=== PATIENT | female | born 1960 | race African-American/Black ===

== ENCOUNTER 2019-12-09 20:58 | Emergency (ER) | payer MEDICAID ==
[2019-12-09] MEDS ORDERED: LORAZEPAM INJ 2 MG/1 ML VIAL IV ONE (21:18)
[2019-12-09] MEDS ORDERED: NORMAL SALINE 1000 ML 1,000 ML IV ONE (21:30)
[2019-12-09] MEDS ORDERED: LABETALOL HCL INJ 20 MG/4 ML DISP.SYRIN IV ONE (21:30)
--- NOTE | 2019-12-09 21:35 | RADIOLOGY REPORT (SQ) ---
CT of the head: 12/09/2019 8:28 PM CDT HISTORY: 59-year-old patient with altered mental status, trauma. COMPARISON: None available TECHNIQUE: Multiple axial contiguous images were obtained through the head without intravenous contrast administered. This exam was performed according to our departmental dose-optimization program, which includes automated exposure control, adjustment of the mA and/or KV according to the patient's size and/or use of iterative reconstruction technique. FINDINGS: The ventricles and cerebral sulci demonstrate mild prominence, consistent with cerebral atrophy. There are mild periventricular hypodensities, suggestive of periventricular white matter changes. The sifuentes-white matter differentiation is within normal limits. Both orbits appear unremarkable. Bilateral basal ganglia calcifications are seen. The mastoid air cells appear clear. There is mild mucoperiosteal thickening of the ethmoid sinuses. The calvarium is intact. No extra-axial fluid collection is seen. No midline shift or mass effect is apparent. There are no findings to suggest acute intracranial hemorrhage. IMPRESSION: 1. No acute intracranial hemorrhage is seen. 2. Mild cerebral atrophy and periventricular white matter changes are seen.
--- NOTE | 2019-12-09 21:39 | EKG REPORT ---
SEVERITY:- ABNORMAL ECG - SINUS TACHYCARDIA LEFT ATRIAL ABNORMALITY LVH WITH SECONDARY REPOLARIZATION ABNORMALITY : Confirmed by: Suleiman Shankar 09-Dec-2019 21:38:31
[2019-12-09 21:55] LABS: ARTERIAL BLOOD BASE EXCESS -5.1 mmol/L; ARTERIAL BLOOD H2CO3 1.18 mmol/L (1.05-1.35); ARTERIAL BLOOD HCO3 20.3 mmol/L (20-24); ARTERIAL BLOOD O2 SATURATION 95.8 % (94-98); ARTERIAL BLOOD PCO2 39.2 mmHg (35-45); ARTERIAL BLOOD PH 7.33 (7.35-7.45); ARTERIAL BLOOD PO2 84.9 mmHg (80-100); ARTERIAL BLOOD TOTAL CO2 21.5 mmol/L (21-25)
[2019-12-09 21:58] LABS: ABSOLUTE BASOPHILS # (AUTO) 0.1 10^3/uL (0.0-0.2); ABSOLUTE EOSINOPHILS # (AUTO) 0.2 10^3/uL (0.0-0.6); ABSOLUTE LYMPHOCYTES (AUTO) 2.3 10^3/uL (0.5-4.7); ABSOLUTE MONOCYTES (AUTO) 0.6 10^3/uL (0.1-1.4); ABSOLUTE NEUT (AUTO) 1.7 10^3/uL (1.7-8.2); BASOPHILS % (AUTO) 1.4 % (0-2); EOSINOPHILS % (AUTO) 4.3 % (0-6); HEMOGLOBIN 15.3 g/dL (12.0-15.5); LYMPHOCYTES % (AUTO) 47.4 % (13-45); MEAN CORPUSCULAR HGB CONC 33.2 g/dL (32.0-36.0); MEAN CORPUSCULAR VOLUME 99 fl (80-97); MONOCYTES % (AUTO) 11.7 % (3-13); RED BLOOD COUNT 4.63 10^6/uL (3.72-5.28); RED CELL DISTRIBUTION WIDTH 13.6 % (11.5-14.0); SEGMENTED NEUTROPHILS % (AUTO) 35.2 % (42-78); TOTAL CELLS COUNTED % (AUTO) 100 %; WHITE BLOOD COUNT 4.9 10^3/uL (4.0-10.5)
[2019-12-09 21:59] LABS: ARTERIAL BLOOD FIO2 6 L
[2019-12-09 22:05] LABS: APPEARANCE,URINE SLIGHTLY-CLOUDY; BILIRUBIN,URINE NEGATIVE (NEGATIVE); COLOR,URINE YELLOW; GLUCOSE, URINE 50 mg/dL (NEGATIVE); KETONES,URINE NEGATIVE (NEGATIVE); LEUKOCYTE ESTERASE,URINE TRACE (NEGATIVE); NITRITE,URINE NEGATIVE (NEGATIVE); PROTEIN,URINE 30 mg/dL (NEGATIVE); URINE SPECIFIC GRAVITY 1.012
[2019-12-09 22:15] LABS: ALBUMIN 3.9 g/dL (3.5-5.0); ALKALINE PHOSPHATASE 140 U/L (38-126); ANION GAP 6 (5-19); ASPARTATE AMINO TRANSFERASE 304 U/L (14-36); BILIRUBIN,DIRECT 0.4 mg/dL (0.0-0.4); BILIRUBIN,TOTAL 0.9 mg/dL (0.2-1.3); BLOOD UREA NITROGEN 12 mg/dL (7-20); CALCIUM 8.9 mg/dL (8.4-10.2); CARBON DIOXIDE 22 mmol/L (22-30); CHLORIDE 110 mmol/L (98-107); GLUCOSE 184 mg/dL (75-110); POTASSIUM 3.4 mmol/L (3.6-5.0)
[2019-12-09 22:16] LABS: ALCOHOL < 10 mg/dL (NONE DETECTED)
--- NOTE | 2019-12-09 22:17 | ER Document Report ---
Entered by JULIO RAMIREZ SCRIBE 12/09/198 Acting as scribe for:IRMA HOPSON IV, MD ED General - General Chief Complaint: Altered Mental Status Stated Complaint: ALTERED MENTAL STATUS Mode of Arrival: Medic Information source: Emergency Med Personnel Notes: This 59 year old female patient brought in by EMS from home via emergency traffic presents to the ED today with complaints of altered mental status since yesterday. EMS reports that the patient was not following directions and was combative, so they administered 240 mg Ketamine IM to get her in the truck. Patient had O2 sats of 91% on RA and was placed on 3L supplemental O2 which brought the sats to 97%. Patient was also noted to have snoring respirations that were resolved with placement of a NPA in the right nare. EMS reports a history of mental health issues, hepatitis C, and a "liver procedure." They note that she may have a possible head injury; however, the family were poor historians, so HPI/PMH are limited. Patient has some medications at bedside, one of which is for blood pressure that has not been filled in a while. Past Medical History - General Information source: Emergency Med Personnel Cannot obtain history due to: Altered mental status - Social History Smoking Status: Unknown if Ever Smoked Smoking Education Provided: No Family History: Reviewed & Not Pertinent Review of Systems - Review of Systems -: Yes ROS unobtainable due to patient's medical condition Physical Exam - Vital signs Vitals: Temp Pulse Ox 97.5 F 97 12/09/19 20:58 12/09/19 20:58 - General General appearance: Other - Appears confused, not making eye contact. Random movements noted to all of her extremitties - HEENT Head: Normocephalic, Atraumatic Eyes: No: Scleral icterus Pupils: Pinpoint Nasal: Other - NPA right nare - Respiratory Respiratory status: No respiratory distress, Other - Managing secretions Chest status: Nontender Breath sounds: Normal Chest palpation: Normal - Cardiovascular Rhythm: Regular, Tachycardia Heart sounds: Normal auscultation Murmur: No Friction rub: No Gallop: None auscultated - Abdominal Inspection: Normal Distension: No distension Bowel sounds: Normal Tenderness: Nontender - Abdomen soft Organomegaly: No organomegaly - Back Back: Normal, Nontender - Extremities General upper extremity: Normal inspection General lower extremity: Normal inspection - Neurological Neuro grossly intact: Yes Cognition: Confused - Psychological Associated symptoms: Agitated, Restlessness - Difficulty laying still - Skin Skin Temperature: Warm Skin Moisture: Dry Skin Color: Normal Course - Re-evaluation Re-evalutation: 12/09/19 23:11 Patient seems to be more coherent, making better eye contact and speaking in 2 or 3 word sentences at this time. Patient seems to be responding well to reduction in her elevated blood pressure. Her presentation and symptoms are concerning for hypertensive encephalopathy. Plan is to contact consumer experience consultant for admission. 12/10/19 03:58 Patient is now alert and oriented x3. Patient blood pressure is markedly improved. Patient is off Cardene drip. Patient is refusing recommendation for admission. Patient knows who she is, where she has, who the president is, and what year it is. - Vital Signs Vital signs: Temp Pulse Resp BP Pulse Ox 97.5 F 24 H 146/113 H 97 12/09/19 20:58 12/10/19 03:45 12/10/19 03:45 12/10/19 03:45 - Laboratory Result Diagrams: 12/09/19 21:38 12/09/19 21:38 Laboratory results interpreted by me: 12/09/19 12/09/19 12/09/19 21:38 21:38 21:38 MCV 99 H Plt Count 70 L Lymph % (Auto) 47.4 H Seg Neutrophils % 35.2 L ABG pH 7.33 L Potassium Chloride Glucose AST ALT Alkaline Phosphatase Ammonia 38.4 H Total Protein Free T3 pg/mL Urine Protein Urine Glucose (UA) Urine Blood Urine Urobilinogen Ur Leukocyte Esterase 12/09/19 12/09/19 12/09/19 21:38 21:38 21:38 MCV Plt Count Lymph % (Auto) Seg Neutrophils % ABG pH Potassium 3.4 L Chloride 110 H Glucose 184 H AST 304 H ALT 152 H Alkaline Phosphatase 140 H Ammonia Total Protein 9.0 H Free T3 pg/mL 2.58 L Urine Protein 30 H Urine Glucose (UA) 50 H Urine Blood MODERATE H Urine Urobilinogen 2.0 H Ur Leukocyte Esterase TRACE H - Diagnostic Test Radiology reviewed: Reports reviewed - EKG Interpretation by Me Additional EKG results interpreted by me: 12/09/19 23:12 EKG obtained on 12/09/2019 at 2119 hrs. was interpreted by this MD. Findings: Sinus tachycardia, heart rate 145, normal axis, P waves preceding QRS complexes, QRS complexes appear narrow, there are no obvious patterns of ST segment elevation or depression present to suggest acute myocardial ischemia or infarction. Impression: Sinus tachycardia with nonspecific ST segments. - Consults remington burton, consumer experience consultant service Consulted provider: will come to ER Critical Care Note - Critical Care Note Total time excluding time spent on procedures (mins): 120 - hypertensive urgency Discharge - Discharge Clinical Impression: Hypertensive urgency, Noncompliance with medication regimen Condition: Stable Disposition: HOME, SELF-CARE Additional Instructions: Return to the Emergency Department without delay if any worse. HOME CARE INSTRUCTIONS & INFORMATION: Thank you for choosing us for your medical needs. We hope you're satisfied with the care you received. After you leave, you must properly care for your problem and, at the same time, observe its progress. Any condition can change. Some illnesses can change rapidly over hours or days. If your condition worsens, return to the Emergency Department or see your physician promptly. ABOUT YOUR X-RAYS AND EKG'S: If you had an EKG or X-rays taken, they have been read by the Emergency Physician. The X-rays and EKG's will also be read by a Radiologist or [employer] within 24 hours. If discrepancies are noted, you will be notified by telephone. Please be certain the ED has a correct telephone number & address where you can be reached. Also, realize that some fractures or abnormalities do not show up on initial X-rays. If your symptoms continue, see your physician. ABOUT YOUR LABORATORY TEST: If you had laboratory tests, the results have been reviewed by the Emergency Physician. Some test results (for example cultures) may not be available for several days. You will be contacted if any test result shows you need additional treatment. Please be certain the ED has a correct telephone number and address where you can be reached. ABOUT YOUR MEDICATIONS: You will receive instructions on how to take your medicine on the prescription label you receive. Additional information may be provided by the Pharmacy. If you have questions afterwards, call the ED for clarification or further instructions. Some prescribed medications may cause drowsiness. Do not perform tasks such as driving a car or operating machinery without consulting your Pharmacist. If you feel you need a refill of pain medication, your condition will need re-evaluation. Please do not call for a refill of any medication. ABOUT YOUR SIGNATURE: Signature of this document acknowledges to followin. Understanding that you received emergency treatment and that you may be released before al medical problems are known or treated. Please be certain the ED has a correct phone number & address where you can be reached. 2. Acknowledgement that you will arrange for follow-up care as recommended. 3. Authorization for the Emergency Physician to provide information to your follow-up Physician in order to maximize your care. AT ANY TIME, IF YOUR SYMPTOMS CHANGE SIGNIFICANTLY OR WORSEN OR YOU DEVELOP NEW SYMPTOMS, RETURN TO THE EMERGENCY DEPARTMENT IMMEDIATELY FOR RE-EVALUATION. OUR GOAL IS TO PROVIDE EXCELLENT MEDICAL CARE! WE HOPE THAT WE HAVE MET YOUR EXPECTATIONS DURING YOUR EMERGENCY DEPARTMENT VISIT AND THAT YOU FEEL YOU HAVE RECEIVED EXCELLENT CARE! High Blood Pressure When your blood pressure was taken today it was elevated. Today's reading was___245/176 . Pre-hypertension/Hypertension: The patient has been informed that they may have pre-hypertension or Hypertension based on a blood pressure reading in the emergency department. I recommend that the patient call the primary care provider listed on their discharge instructions or a physician of their choice this week to arrange follow up for further evaluation of possible pre- hypertension or Hypertension. Sometimes, stress or illness causes a temporary elevation of your blood pressure. We suggest that you get your blood pressure measured three more times during the next few days to see if this is more than a temporary abnormality. If your blood pressure is greater than 150/90 on each occasion, you must have treatment. Some simple things you can do to help are: If you have blood pressure medicine but aren't using it regularly, start taking it again. Get some aerobic exercise for at least 20 minutes on a daily basis. (See your doctor before begin marlene a new exercise program.) Eat a low-fat diet. Lose excess weight. Avoid salty foods and avoid adding salt to any of the foods you eat. Avoid diet pills, decongestants, "energizing" herbs, and other medicines that elevate blood pressure. If left untreated, hypertension greatly enhances your risk for developing heart disease and strokes. Please don't ignore this problem. Prescriptions: Carvedilol [Coreg 12.5 mg Tablet] 12.5 mg PO Q12 #28 tablet Amlodipine Besylate [Norvasc 10 mg Tablet] 10 mg PO DAILY #14 tablet Lisinopril [Zestril] 2.5 mg PO DAILY #14 tablet Referrals: BRANDI ANNA MD [HONORARY] - Follow up as needed I personally performed the services described in the documentation, reviewed and edited the documentation which was dictated to the scribe in my presence, and it accurately records my words and actions.
[2019-12-09 22:18] LABS: PLATELET COUNT 70 10^3/uL (150-450)
--- NOTE | 2019-12-09 22:20 | RADIOLOGY REPORT (SQ) ---
XR CHEST 1 VIEW CLINICAL STATEMENT: ams COMPARISON: None FINDINGS: Heart is moderately enlarged. There is no focal lung consolidation or pleural effusion. No evidence of pulmonary edema or pneumothorax. Right subclavian vascular stent is noted in place. IMPRESSION: No definite acute cardiopulmonary disease.
[2019-12-09] MEDS ORDERED: NICARDIPINE HCL RTU, ISO-OS 20 MG/200 ML RTUINJ IV PRN (22:21)
[2019-12-09 22:24] LABS: URINE AMPHETAMINES SCREEN NEGATIVE; URINE BARBITURATES SCREEN NEGATIVE; URINE BENZODIAZEPINES SCREEN NEGATIVE; URINE COCAINE SCREEN NEGATIVE; URINE MARIJUANA (THC) SCREEN NEGATIVE; URINE METHADONE SCREEN NEGATIVE; URINE PHENCYCLIDINE SCREEN NEGATIVE
[2019-12-09 23:50] LABS: FREE T3 2.58 pg/mL (2.77-5.27); FREE T4 (FREE THYROXINE) 1.25 ng/dL (0.78-2.19)
[2019-12-10 00:06] LABS: THYROID STIMULATING HORMONE 3.37 uIU/mL (0.47-4.68)
--- NOTE | 2019-12-10 00:54 | RADIOLOGY REPORT (SQ) ---
CT CERVICAL SPINE: 12/09/2019 11:51 PM CDT TECHNIQUE: Axial contiguous images were obtained through the cervical spine without intravenous contrast. Sagittal and coronal reconstructions were also reviewed. This exam was performed according to our departmental dose-optimization program, which includes automated exposure control, adjustment of the mA and/or KV according to the patient's size and/or use of iterative reconstruction technique. COMPARISON: None available INDICATION: 59-year old patient with neck pain, altered mental status, trauma. FINDINGS: The vertebral bodies appear well aligned. There are multilevel anterior osteophytes within the cervical spine. There is a disc osteophyte seen at C5/C6. The vertebral body heights appear well maintained. No significant pre-vertebral soft tissue swelling is noted. No definite fracture or subluxation is noted. Mild to moderate multilevel intervertebral disc space narrowing is seen. The visualized brain parenchyma appears unremarkable. The craniocervical junction is unremarkable. There is increased density at the right apex adjacent to a stent at the right axillary vasculature. This could be due to scarring four prior procedures. The visualized proximal esophagus is patulous. The left carotid bulb demonstrates moderate atherosclerotic calcification. IMPRESSION: There are no findings to suggest an acute fracture or subluxation within the cervical spine. There is increased density at the right apex which could be due to the prior procedures or scarring. Interval follow-up is recommended to exclude a mass.
[2019-12-10 05:27] VITALS: BP 150/116
== END 2019-12-10 05:26 | disposition home or self-care (01) ==
LOC: ER 20:58
DX: I16.0 Hypertensive urgency (principal); I10 Essential (primary) hypertension; G31.9 Degenerative disease of nervous system, unspecified; R41.0 Disorientation, unspecified; R06.83 Snoring; R00.0 Tachycardia, unspecified; R45.1 Restlessness and agitation; Z91.14 Patient's other noncompliance with medication regimen
CPT/HCPCS: 93005; 99291; 99292; 96361; 96375; 96365; 36415; 84439; 80307 ×2; 82140; 82803; 84443; 85025; 80053; 81001; 84481; 71045; 70450; 72125; 93010; J3490 ×2; J2060; J7030

== ENCOUNTER 2020-03-13 15:14 | Inpatient (IN) | payer MEDICAID ==
[2020-03-13] MEDS ORDERED: ACETAMINOPHEN 325 MG TABLET PO ONE (15:28)
[2020-03-13] MEDS ORDERED: CEFEPIME 2 GM/D5W RTU 2 GM/50 ML RTUPB IV ONE (15:30)
[2020-03-13] MEDS ORDERED: VANCOMYCIN HCL INJ 1000 MG VIAL IV ONE (15:30)
[2020-03-13] MEDS ORDERED: NORMAL SALINE 1000 ML 1,000 ML IV ONE ×2 (15:30→19:20)
[2020-03-13] MEDS ORDERED: ACETAMINOPHEN 650 MG SUPP.RECT PR ONE (15:34)
--- NOTE | 2020-03-13 15:46 | ER Document Report ---
ED General - General Chief Complaint: Unresponsive Stated Complaint: UNRESPONSIVE Time Seen by Provider: 03/13/20 15:28 Mode of Arrival: Medic Information source: Emergency Med Personnel - [facility] Notes: Patient brought in by ambulance for altered mental status. History is patient w as found in the bathroom on the floor. Medics state that in transport patient had approximately 15-second tonic-clonic seizure activity. They also state the doctor told him approximately a year ago patient had a similar episode where she was unresponsive for approximate 1 week and then gradually came back to normal. She does have a history of hepatitis C. No known history of trauma. No known history of alcohol or drug use. No known history of vomiting. She was found to have fever in route of 101 by paramedics. Patient is not able to put dissipate in history. Past Medical History - General Information source: Emergency Med Personnel - Social History Smoking Status: Former Smoker Frequency of alcohol use: None known Drug Abuse: None - None known Family History: Reviewed & Not Pertinent Review of Systems - Review of Systems -: Yes ROS unobtainable due to patient's medical condition - Patient cannot do review of symptoms due to altered mental status Physical Exam - Vital signs Vitals: Resp Pulse Ox 22 H 95 03/13/20 15:31 03/13/20 15:31 Interpretation: Hypertensive - General General appearance: Lethargic - HEENT Head: Normocephalic, Other - Some abrasions to the left lateral side of the face Eyes: Scleral icterus - Respiratory Respiratory status: No respiratory distress Chest status: Nontender Breath sounds: Normal Chest palpation: Normal - Cardiovascular Rhythm: Tachycardia - Plan of febrile seizure in route 50 history of liver disease apparently did this a year ago per daughter where she was found unresponsive she was found unresponsive today by daughter in the bathroom paramedics got some abrasions on the side of her head she also has a fever of 101 Heart sounds: Normal auscultation Murmur: No - Abdominal Inspection: Normal Distension: No distension Bowel sounds: Normal Tenderness: Nontender Organomegaly: No organomegaly - Back Back: Normal. No: Scars - Extremities General upper extremity: Normal inspection, Normal color, Normal temperature General lower extremity: Normal inspection, Normal color, Normal temperature - Neurological Neuro grossly intact: No Cognition: Confused - Calluses that they do not want to go back over there after 1 week once all the labs are back and go back over and see if because her up there patient some they would have to and constant Orientation: Disoriented to person, Disoriented to place, Disoriented to time Omar Coma Scale Eye Opening: Spontaneous [place] Coma Scale Verbal: Confused [place] Coma Scale Motor: Localizes to Pain Omar Coma Scale Total: 13 Notes: Neurologically patient has a nonfocal exam. She appears to move all extremities. She does have purposeful movements and that she will move away from painful stimuli or try to grab my hand if I do a sternal rub. She is also pulling off her mask and other items that have been placed on the patient. She will not follow commands at this time however. She does appear confused. - Psychological Associated symptoms: Agitated, Confused - Skin Skin Temperature: Warm Skin Moisture: Dry Skin Color: Normal Course - Re-evaluation Re-evalutation: 03/13/20 15:47 Patient arrives confused and febrile. However she is a GCS of 12-13 at this time. Patient is protecting her airway. She is talking however it is not comprehensible at this time. She does have purposeful movements. She will not follow commands. Patient is febrile as well. Source of the fever is unclear at this time. Patient does have 6 approximately 25 white cells in her urine and no other obvious source of infection. A Covid test is pending. Patient did have a lumbar puncture performed however it does not appear to be consistent with an infectious process in the CSF. The red cells did not clear from 2 1-2 before. I did call and discussed this with the neurologist at [facility] who thought it was most consistent with a traumatic tap and not with an occult subarachnoid. However he recommended that if patient's neurological status does not improve by tomorrow he would recommend a CTA. Currently has approximately 7 PM patient is still confused. She moves all extremities well and will lie with her hand behind her head relaxing and will roll over from one side to the other. However she will not follow any commands. Also she tries to speak but it is un intelligible. She has received 2 doses of labetalol for her uncontrolled hypertension and currently her blood pressures approximately 185 systolic which is significantly down from her initial pressures on no more labetalol as can be given. Pulse has been in the 80s. O2 saturations been 96 to 100% on room air. Patient remains febrile despite Tylenol at this time an NSAID will be tried. Patient has been covered with antibiotics. She has good urine output and is now on her third liter of fluid. She will be admitted to the hospital for further evaluation. 03/13/20 19:21 - Vital Signs Vital signs: Temp Pulse Resp BP Pulse Ox 21 H 179/101 H 95 03/13/20 18:31 03/13/20 18:31 03/13/20 18:31 - Laboratory Result Diagrams: 03/13/20 15:30 03/13/20 15:30 Laboratory results interpreted by me: 03/13/20 03/13/20 03/13/20 15:30 15:30 15:30 Hgb 16.1 H Hct 48.2 H MCV 99 H Plt Count 112 L PT 16.6 H Carbon Dioxide 17 L Anion Gap 23 H Glucose 131 H Lactic Acid Total Bilirubin 1.9 H Direct Bilirubin 1.0 H AST 101 H ALT 61 H Alkaline Phosphatase 151 H Total Protein 9.4 H Urine Protein Urine Ketones Urine Blood Urine Urobilinogen Leukocyte Esterase Rfl CSF WBC CSF RBC CSF Glucose CSF Total Protein 03/13/20 03/13/20 03/13/20 15:30 16:07 16:11 Hgb Hct MCV Plt Count PT Carbon Dioxide Anion Gap Glucose Lactic Acid 9.7 H Total Bilirubin Direct Bilirubin AST ALT Alkaline Phosphatase Total Protein Urine Protein >=500 H Urine Ketones TRACE H Urine Blood SMALL H Urine Urobilinogen 4.0 H Leukocyte Esterase Rfl SMALL H CSF WBC 6 H CSF RBC 4050 H CSF Glucose CSF Total Protein 03/13/20 03/13/20 16:11 16:11 Hgb Hct MCV Plt Count PT Carbon Dioxide Anion Gap Glucose Lactic Acid Total Bilirubin Direct Bilirubin AST ALT Alkaline Phosphatase Total Protein Urine Protein Urine Ketones Urine Blood Urine Urobilinogen Leukocyte Esterase Rfl CSF WBC 11 H CSF RBC 5020 H CSF Glucose 75 H CSF Total Protein 70 H - Diagnostic Test Radiology reviewed: Image reviewed, Reports reviewed - EKG Interpretation by Me EKG shows normal: Sinus rhythm Rate: Tachycardia - 106 Rhythm: NSR [place]/QRS: No: Right axis deviation, Left axis deviation Procedures - Lumbar Puncture Lumbar puncture Time completed: 16:30 Consent obtained: No - obtunded Lumbar puncture pre-procedure: Sterile PPE donned, Betadine prep applied, Sterile drapes applied Patient position: Lying Needle size: 21 Lumbar puncture location: l4-l5 Anesthetic type: 1% Lidocaine w/epi mL's of anesthetic: 6 Amount/type of drainage: clear/pink 5cc's Number of attempts: 1 Complications: Yes - apparent traumatic tap Critical Care Note - Critical Care Note Total time excluding time spent on procedures (mins): 60 Comments: Approximately 60 minutes of critical care time were spent on this patient. This included multiple reassessments. Included reviewing imaging and laboratory values. It included discussion with consultants. It also included discussion with family. Discharge - Discharge Clinical Impression: Fever Qualifiers: Fever type: unspecified Qualified Code(s): R50.9 - Fever, unspecified UTI (urinary tract infection) Qualifiers: Urinary tract infection type: acute cystitis Hematuria presence: without hematuria Qualified Code(s): N30.00 - Acute cystitis without hematuria Altered mental status Qualifiers: Altered mental status type: delirium Qualified Code(s): R41.0 - Disorientation, unspecified Facial contusion Qualifiers: Encounter type: initial encounter Qualified Code(s): S00.83XA - Contusion of other part of head, initial encounter Condition: Critical Disposition: ADMITTED INPATIENT Admitting Provider: Lokesh (Hospitalist) Unit Admitted: [facility]
[2020-03-13 15:51] LABS: ABSOLUTE LYMPHOCYTES (AUTO) 1.2 10^3/uL (0.5-4.7); ABSOLUTE MONOCYTES (AUTO) 0.9 10^3/uL (0.1-1.4); ABSOLUTE NEUT (AUTO) 6.2 10^3/uL (1.7-8.2); BASOPHILS % (AUTO) 0.4 % (0-2); EOSINOPHILS % (AUTO) 0.1 % (0-6); HEMATOCRIT 48.2 % (36.0-47.0); HEMOGLOBIN 16.1 g/dL (12.0-15.5); LYMPHOCYTES % (AUTO) 14.2 % (13-45); MEAN CORPUSCULAR HGB CONC 33.4 g/dL (32.0-36.0); MEAN CORPUSCULAR VOLUME 99 fl (80-97); MONOCYTES % (AUTO) 10.8 % (3-13); PLATELET COUNT 112 10^3/uL (150-450); RED BLOOD COUNT 4.89 10^6/uL (3.72-5.28); RED CELL DISTRIBUTION WIDTH 13.6 % (11.5-14.0); SEGMENTED NEUTROPHILS % (AUTO) 74.5 % (42-78); TOTAL CELLS COUNTED % (AUTO) 100 %; WHITE BLOOD COUNT 8.3 10^3/uL (4.0-10.5)
[2020-03-13] MEDS ORDERED: LABETALOL HCL INJ 20 MG/4 ML DISP.SYRIN IV ONE ×2 (15:51→16:50)
[2020-03-13] MEDS ORDERED: LIDOCAINE 1%/EPINEPHRINE INJ 20 ML VIAL ONE (15:52)
--- NOTE | 2020-03-13 15:54 | RADIOLOGY REPORT (SQ) ---
EXAM DESCRIPTION: CHEST SINGLE VIEW IMAGES COMPLETED DATE/TIME: 03/13/2020 3:47 pm REASON FOR STUDY: ams COMPARISON: 12/09/2019 EXAM PARAMETERS: NUMBER OF VIEWS: One view. TECHNIQUE: Single frontal radiographic view of the chest acquired. RADIATION DOSE: NA LIMITATIONS: None. FINDINGS: LUNGS AND PLEURA: No opacities, masses or pneumothorax. No pleural effusion. MEDIASTINUM AND HILAR STRUCTURES: No masses. Contour normal. HEART AND VASCULAR STRUCTURES: Heart normal in size. Normal vasculature. BONES: No acute findings. HARDWARE: Vascular stent remains in place overlying the right lung apex. OTHER: No other significant finding. IMPRESSION: NO ACUTE RADIOGRAPHIC FINDING IN THE CHEST. TECHNICAL DOCUMENTATION: JOB ID: [id number] 2010 [employer]- All Rights Reserved Reading location - IP/workstation name: [email or web address]
--- NOTE | 2020-03-13 15:57 | RADIOLOGY REPORT (SQ) ---
EXAM DESCRIPTION: CT HEAD WITHOUT IMAGES COMPLETED DATE/TIME: 03/13/2020 3:48 pm REASON FOR STUDY: ams COMPARISON: 12/09/2019 TECHNIQUE: Axial images acquired through the brain without intravenous contrast. Images reviewed wi th bone, brain and subdural windows. Additional sagittal and coronal reconstructions were generated. Images stored on PACS. All CT scanners at this facility use dose modulation, iterative reconstruction, and/or weight based d osing when appropriate to reduce radiation dose to as low as reasonably achievable (ALARA). [facility]: Dose Right [facility]: CareDose [facility]: Dose Right [facility]: Teradose 4D [facility]: ADMETA RADIATION DOSE: CT Rad equipment meets quality standard of care and radiation dose reduction techniq ues were employed. CTDIvol: 55.2 mGy. DLP: 1112 mGy-cm. mGy. LIMITATIONS: None. FINDINGS: VENTRICLES: Prominent. CEREBRUM: No masses. No hemorrhage. No midline shift. Areas of low density in the white matter mos t likely due to chronic micro-vascular ischemic change. No evidence for acute infarction. CEREBELLUM: No masses. No hemorrhage. No alteration of density. No evidence for acute infarction. EXTRAAXIAL SPACES: Mild age-related involutional change. No fluid collections. No masses. ORBITS AND GLOBE: No intra- or extraconal masses. Normal contour of globe without masses. CALVARIUM: No fracture. PARANASAL SINUSES: No fluid or mucosal thickening. SOFT TISSUES: No mass or hematoma. OTHER: No other significant finding. IMPRESSION: MILD CHRONIC CHANGES OF ATROPHY AND MICROVASCULAR ISCHEMIA. NO ACUTE PROCESS. EVIDENCE OF ACUTE STROKE: NO. TECHNICAL DOCUMENTATION: JOB ID: [id number] Quality ID # [id number]: Final reports with documentation of one or more dose reduction techniques (e.g., Au tomated exposure control, adjustment of the mA and/or kV according to patient size, use of iterative reconstruction technique) 2010 [employer]- All Rights Reserved Reading location - IP/workstation name: [email or web address]
[2020-03-13 16:00] LABS: INTERNATIONAL RATION (INR) 1.33; PROTHROMBIN TIME 16.6 SEC (11.4-15.4)
[2020-03-13 16:03] LABS: ALBUMIN 4.7 g/dL (3.5-5.0); ALKALINE PHOSPHATASE 151 U/L (38-126); ASPARTATE AMINO TRANSFERASE 101 U/L (14-36); BILIRUBIN,TOTAL 1.9 mg/dL (0.2-1.3); BLOOD UREA NITROGEN 7 mg/dL (7-20); CALCIUM 9.8 mg/dL (8.4-10.2); GLUCOSE 131 mg/dL (75-110); POTASSIUM 3.6 mmol/L (3.6-5.0); TOTAL PROTEIN 9.4 g/dL (6.3-8.2)
[2020-03-13 16:08] LABS: CARBON DIOXIDE 17 mmol/L (22-30); CHLORIDE 98 mmol/L (98-107)
[2020-03-13 16:10] LABS: ALCOHOL < 10 mg/dL (NONE DETECTED); ANION GAP 23 (5-19)
[2020-03-13 16:26] LABS: APPEARANCE,URINE SLIGHTLY-CLOUDY; BILIRUBIN,URINE NEGATIVE (NEGATIVE); COLOR,URINE AMBER; GLUCOSE, URINE NEGATIVE (NEGATIVE); KETONES,URINE TRACE mg/dL (NEGATIVE); PROTEIN,URINE >=500 mg/dL (NEGATIVE); URINE SPECIFIC GRAVITY 1.015
[2020-03-13 16:44] LABS: URINE AMPHETAMINES SCREEN NEGATIVE; URINE BARBITURATES SCREEN NEGATIVE; URINE BENZODIAZEPINES SCREEN NEGATIVE; URINE COCAINE SCREEN NEGATIVE; URINE MARIJUANA (THC) SCREEN NEGATIVE; URINE METHADONE SCREEN NEGATIVE; URINE PHENCYCLIDINE SCREEN NEGATIVE
[2020-03-13 16:56] LABS: COLOR ALL TUBES PINK; CSF TUBE NUMBER 1
[2020-03-13 16:57] LABS: APPEARANCE ALL TUBES HAZY
[2020-03-13 16:58] LABS: RED BLOOD CELL,CSF 4050 /uL (0-10)
[2020-03-13 16:59] LABS: WHITE BLOOD CELL,CSF 6 /uL (0-5)
[2020-03-13 17:00] LABS: GLUCOSE,CSF 75 mg/dL (40-70); PROTEIN,CSF 70 mg/dL (12-60)
[2020-03-13 17:22] LABS: APPEARANCE ALL TUBES HAZY; COLOR ALL TUBES PINK; CSF TUBE NUMBER 4
[2020-03-13 17:23] LABS: RED BLOOD CELL,CSF 5020 /uL (0-10)
[2020-03-13 17:24] LABS: WHITE BLOOD CELL,CSF 11 /uL (0-5)
[2020-03-13 17:49] LABS: VENOUS BLOOD HCO3 22.2 mmol/L (20-32); VENOUS BLOOD PCO2 36.6 mmHg (35-63); VENOUS BLOOD PH 7.4 (7.30-7.42)
--- NOTE | 2020-03-13 17:49 | EKG REPORT ---
SEVERITY:- BORDERLINE ECG - SINUS TACHYCARDIA PROBABLE LEFT ATRIAL ABNORMALITY : Confirmed by: Talon Marie MD 13-Mar-2020 17:48:49
[2020-03-13 17:58] LABS: MONONUCLEAR CELLS CSF 54 %; POLYMORPHONUCLEAR CELLS CSF 46 %
[2020-03-13 18:03] LABS: MONONUCLEAR CELLS CSF 26 %; POLYMORPHONUCLEAR CELLS CSF 74 %
[2020-03-13] MEDS ORDERED: KETOROLAC TROMETHAMINE INJ/PF 30 MG/1 ML SDV IV ONE (19:07)
[2020-03-13] MEDS ORDERED: VANCOMYCIN HCL 0 MG in DEXTROSE 5%-WATER 250 ML IV NR (19:45)
[2020-03-13] MEDS ORDERED: ACETAMINOPHEN 650 MG SUPP.RECT PR PRN (19:45)
[2020-03-13] MEDS ORDERED: DIAZEPAM INJ 10 MG/2 ML DISP.SYRIN IV PRN (19:52)
[2020-03-13] MEDS ORDERED: LABETALOL HCL INJ 20 MG/4 ML DISP.SYRIN IV PRN (19:52)
[2020-03-13] MEDS ORDERED: LACOSAMIDE INJ/PF 200 MG/20 ML SDV IV ONE (21:30)
[2020-03-13] MEDS ORDERED: ACYCLOVIR SODIUM INJ/PF 500 MG/10 ML SDV IV SCH (22:00)
[2020-03-13] MEDS: ACYCLOVIR SODIUM 700 MG in NORMAL SALINE 100 ML IV SCH (22:09)
[2020-03-13] MEDS: PANTOPRAZOLE SODIUM 40 MG VIAL IV SCH (22:09)
[2020-03-14] MEDS: CEFTRIAXONE 2 GM/D5W RTU 2 GM/50 ML RTUPB IV SCH ×3 (00:30→18:10)
[2020-03-14 05:26] LABS: INTERNATIONAL RATION (INR) 1.36; PROTHROMBIN TIME 16.9 SEC (11.4-15.4)
[2020-03-14] MEDS: ACYCLOVIR SODIUM 700 MG in NORMAL SALINE 100 ML IV SCH ×3 (05:39→22:07)
[2020-03-14 05:52] LABS: ALKALINE PHOSPHATASE 125 U/L (38-126); ANION GAP 12 (5-19); ASPARTATE AMINO TRANSFERASE 76 U/L (14-36); BILIRUBIN,DIRECT 0.7 mg/dL (0.0-0.4); BILIRUBIN,TOTAL 1.8 mg/dL (0.2-1.3); BLOOD UREA NITROGEN 10 mg/dL (7-20); CARBON DIOXIDE 25 mmol/L (22-30); CHLORIDE 99 mmol/L (98-107); GLUCOSE 97 mg/dL (75-110); TOTAL PROTEIN 8.3 g/dL (6.3-8.2)
--- NOTE | 2020-03-14 06:41 | PDOC H&P ---
History of Present Illness Admission Date/PCP: 03/13/2020 19:22 No local PCP Patient complains of: Unresponsiveness History of Present Illness: NIA JUAREZ is a 60 year old female who was found unresponsive on the bathroom floor today by a family member. Patient is not verbally responsive and is unable to contribute to her medical history. EMS reports that the patient's daughter informed them that she had a similar episode 1 year ago which resulted in a 1 week period of unresponsiveness with a gradual return to her usual state of health. EMS reported the patient to be febrile and to have had a tonic- clonic seizure lasting approximately 60 seconds en route to the hospital. In the emergency room the patient was noted to have a contusion to her left face and was noted to be appropriately responsive to painful stimuli and to move all extremities however she remained verbally incoherent. She was additionally noted to have a fever of 102.4 with a normal white blood count and a lactic acid of 9.7. She was initially hypertensive at 220/120 which responded to treatment with labetalol. A CT of her head showed no acute changes. A lumbar puncture was performed and revealed a traumatic tap without evidence of acute infection. A history of hepatitis C was elicited from family members. Patient was subsequently admitted to the hospital for further evaluation and treatment. Past Medical History Past Medical History: Due to the patient's verbal unresponsiveness all information presented here is obtained from the best available reliable source. Cardiac Medical History: Denies: Coronary Artery Disease, Hypertension Pulmonary Medical History: Denies: Asthma, Chronic Obstructive Pulmonary Disease (COPD) Neurological Medical History: Reports: Seizures Denies: Hemorrhagic CVA, Ischemic CVA Endocrine Medical History: Denies: Diabetes Mellitus Type 1, Diabetes Mellitus Type 2 Malignancy Medical History: Reports: None GI Medical History: Reports: Hepatitis - Hepatitis C Denies: Cirrhosis Skin Medical History: Reports: None Psychiatric Medical History: Denies: Alcohol Dependency, Substance Abuse, Tobacco Dependency Traumatic Medical History: Reports: None Infectious Medical History: Reports: Hepatitis C Past Surgical History Past Surgical History: Due to the patient's verbal unresponsiveness all information presented here is obtained from the best available reliable source. Past Surgical History: Reports: Other - No past surgical history is available Social History Information Source: Emergency Med Personnel, [facility] Records Lives with: Family Smoking Status: Former Smoker Electronic Cigarette use?: No Frequency of Alcohol Use: None Hx Recreational Drug Use: No Drugs: None Hx Prescription Drug Abuse: No Past Social History Note: Due to the patient's verbal unresponsiveness all information presented here is obtained from the best available reliable source. Family History Family History: Other - No family medical history is available Family History: Due to the patient's verbal unresponsiveness all information presented here is obtained from the best available reliable source. Parental Family History Reviewed: No Children Family History Reviewed: No Sibling(s) Family History Reviewed.: No Medication/Allergy Home Medications: Unobtainable 03/13/20 Allergies/Adverse Reactions: No Known Allergies Allergy (Unverified 03/13/20 20:58) Review of Systems ROS unobtainable: Due to mental status - Verbally unresponsive Physical Exam Vital Signs: Temp Pulse Resp BP Pulse Ox 21 H 179/101 H 95 03/13/20 18:31 03/13/20 18:31 03/13/20 18:31 Intake & Output 03/11/20 03/12/20 03/13/20 23:59 23:59 23:59 Intake Total 1050 Output Total 820 Balance 230 General appearance: PRESENT: no acute distress, disheveled, other - Verbally unresponsive, purposeful response to painful stimuli.. ABSENT: cooperative Head exam: PRESENT: normocephalic. ABSENT: atraumatic - Left facial contusion noted Eye exam: PRESENT: conjunctiva pink. ABSENT: conjunctival injection, scleral icterus Ear exam: PRESENT: normal external ear exam. ABSENT: bleeding, drainage Mouth exam: PRESENT: dry mucosa, neck supple Neck exam: ABSENT: thyromegaly, tracheal deviation Respiratory exam: PRESENT: clear to auscultation alex, symmetrical, unlabored Cardiovascular exam: PRESENT: RRR. ABSENT: clicks, gallop, rubs Pulses: PRESENT: normal radial pulses, normal dorsalis pedis pul Vascular exam: PRESENT: normal capillary refill. ABSENT: pallor GI/Abdominal exam: PRESENT: normal bowel sounds, soft Rectal exam: PRESENT: deferred Extremities exam: ABSENT: joint swelling, pedal edema Musculoskeletal exam: ABSENT: deformity, dislocation Neurological exam: PRESENT: altered - Verbally unresponsive, CN II-XII grossly intact Psychiatric exam: PRESENT: other Skin exam: PRESENT: dry, intact, warm. ABSENT: jaundice, rash, urticaria Results Laboratory Results: 03/13/20 15:30 03/13/20 15:30 03/13/20 03/13/20 03/13/20 15:30 15:30 15:30 WBC 8.3 RBC 4.89 Hgb 16.1 H Hct 48.2 H MCV 99 H MCH 33.0 MCHC 33.4 RDW 13.6 Plt Count 112 L Seg Neutrophils % 74.5 VBG pH VBG pCO2 VBG HCO3 VBG Base Excess Sodium 137.9 Potassium 3.6 Chloride 98 Carbon Dioxide 17 L Anion Gap 23 H BUN 7 Creatinine 0.75 Est GFR ( Amer) > 60 Glucose 131 H Lactic Acid 9.7 H Calcium 9.8 Total Bilirubin 1.9 H AST 101 H Alkaline Phosphatase 151 H Ammonia Total Protein 9.4 H Albumin 4.7 Urine Color Urine Appearance Urine pH Ur Specific [place] Urine Protein Urine Glucose (UA) Urine Ketones Urine Blood Urine RBC (Auto) Fluid Tube Number CSF Volume CSF Appearance CSF Color CSF WBC CSF RBC CSF Polymorphonuclear CSF Glucose CSF Total Protein 03/13/20 03/13/20 03/13/20 16:07 16:11 16:11 WBC RBC Hgb Hct MCV MCH MCHC RDW Plt Count Seg Neutrophils % VBG pH VBG pCO2 VBG HCO3 VBG Base Excess Sodium Potassium Chloride Carbon Dioxide Anion Gap BUN Creatinine Est GFR ( Amer) Glucose Lactic Acid Calcium Total Bilirubin AST Alkaline Phosphatase Ammonia Total Protein Albumin Urine Color SERGIO Urine Appearance SLIGHTLY-CLOUDY Urine pH 6.0 Ur Specific [place] 1.015 Urine Protein >=500 H Urine Glucose (UA) NEGATIVE Urine Ketones TRACE H Urine Blood SMALL H Urine RBC (Auto) 5 Fluid Tube Number 1 CSF Volume 4.0 CSF Appearance HAZY CSF Color PINK CSF WBC 6 H CSF RBC 4050 H CSF Polymorphonuclear 46 CSF Glucose 75 H CSF Total Protein 70 H 03/13/20 03/13/20 03/13/20 16:11 17:20 17:20 WBC RBC Hgb Hct MCV MCH MCHC RDW Plt Count Seg Neutrophils % VBG pH 7.40 VBG pCO2 36.6 VBG HCO3 22.2 VBG Base Excess -2.0 Sodium Potassium Chloride Carbon Dioxide Anion Gap BUN Creatinine Est GFR ( Amer) Glucose Lactic Acid Calcium Total Bilirubin AST Alkaline Phosphatase Ammonia 26.5 Total Protein Albumin Urine Color Urine Appearance Urine pH Ur Specific [place] Urine Protein Urine Glucose (UA) Urine Ketones Urine Blood Urine RBC (Auto) Fluid Tube Number 4 CSF Volume 4.0 CSF Appearance HAZY CSF Color PINK CSF WBC 11 H CSF RBC 5020 H CSF Polymorphonuclear 74 CSF Glucose CSF Total Protein 03/13/20 18:45 WBC RBC Hgb Hct MCV MCH MCHC RDW Plt Count Seg Neutrophils % VBG pH VBG pCO2 VBG HCO3 VBG Base Excess Sodium Potassium Chloride Carbon Dioxide Anion Gap BUN Creatinine Est GFR ( Amer) Glucose Lactic Acid 1.7 Calcium Total Bilirubin AST Alkaline Phosphatase Ammonia Total Protein Albumin Urine Color Urine Appearance Urine pH Ur Specific [place] Urine Protein Urine Glucose (UA) Urine Ketones Urine Blood Urine RBC (Auto) Fluid Tube Number CSF Volume CSF Appearance CSF Color CSF WBC CSF RBC CSF Polymorphonuclear CSF Glucose CSF Total Protein 03/13/20 15:30 Troponin I 0.040 Impressions: Chest X-Ray 03/13/20 15:29 IMPRESSION: NO ACUTE RADIOGRAPHIC FINDING IN THE CHEST. Head CT 03/13/20 15:32 IMPRESSION: MILD CHRONIC CHANGES OF ATROPHY AND MICROVASCULAR ISCHEMIA. NO ACUTE PROCESS. EVIDENCE OF ACUTE STROKE: NO. Assessment and Plan - Diagnosis (1) Acute delirium Is this a current diagnosis for this admission?: Yes (2) Seizure Is this a current diagnosis for this admission?: Yes (3) Hypertensive emergency without congestive heart failure Is this a current diagnosis for this admission?: Yes (4) Fever Qualifiers: Fever type: unspecified Qualified Code(s): R50.9 - Fever, unspecified Is this a current diagnosis for this admission?: Yes (5) Elevated lactic acid level Is this a current diagnosis for this admission?: Yes (6) Facial contusion Qualifiers: Encounter type: initial encounter Qualified Code(s): S00.83XA - Contusion of other part of head, initial encounter Is this a current diagnosis for this admission?: Yes - Plan Summary Summary: Patient will be admitted to the [facility] where she will receive routine supportive and symptomatic cares. Her temperature will be reduced using a cooling blanket and antipyretic agents. She will be treated empirically with IV Rocephin, IV vancomycin, IV acyclovir and IV fluconazole. She received Vimpat 200 mg IV stat followed by 100 mg IV every 12 hours. She will receive Valium 10 mg IV every hour as needed seizure activity. Neurochecks will be obtained every 4 hours. IV labetalol will be used as needed to control hypertension. Additional laboratory and/or radiographic evaluations will be obtained as needed. Teleconsultation with neurology will be obtained as needed. - Time Time Spent with patient: Less than 15 minutes Medications reviewed and adjusted accordingly: No Anticipated Discharge Disposition: Undetermined Anticipated Discharge Timeframe: Undetermined - Inpatient Certification Based on my medical assessment, after consideration of the patient's comorbidities, presenting symptoms, or acuity I expect that the services needed warrant INPATIENT care.: Yes I certify that my determination is in accordance with my understanding of Medicare's requirements for reasonable and necessary INPATIENT services [42 CFR 412.3e].: Yes Medical Necessity: Need Close Monitoring Due to Risk of Patient Decompensation, Need For IV Fluids, Need For Continuous Telemetry Monitoring, Need for Neurological Checks, Need for IV Antibiotics, Risk of Complication if Not Cared For in Hospital
[2020-03-14] MEDS: POTASSI CL 20 MEQ/50 ML RIDER 20 MEQ/50 ML RTUPB IV SCH ×2 (07:00→09:24)
[2020-03-14 07:04] LABS: ABSOLUTE BASOPHILS # (AUTO) 0.1 10^3/uL (0.0-0.2); ABSOLUTE LYMPHOCYTES (AUTO) 3.9 10^3/uL (0.5-4.7); ABSOLUTE MONOCYTES (AUTO) 1.4 10^3/uL (0.1-1.4); ABSOLUTE NEUT (AUTO) 4.6 10^3/uL (1.7-8.2); BASOPHILS % (AUTO) 1.1 % (0-2); EOSINOPHILS % (AUTO) 0.4 % (0-6); HEMATOCRIT 43.1 % (36.0-47.0); LYMPHOCYTES % (AUTO) 38.9 % (13-45); MEAN CORPUSCULAR HEMOGLOBIN 32.9 pg (27.0-33.4); MEAN CORPUSCULAR HGB CONC 34.7 g/dL (32.0-36.0); MONOCYTES % (AUTO) 14.2 % (3-13); RED BLOOD COUNT 4.55 10^6/uL (3.72-5.28); RED CELL DISTRIBUTION WIDTH 13.4 % (11.5-14.0); SEGMENTED NEUTROPHILS % (AUTO) 45.4 % (42-78); TOTAL CELLS COUNTED % (AUTO) 100 %; WHITE BLOOD COUNT 10.1 10^3/uL (4.0-10.5)
[2020-03-14 07:24] LABS: MEAN CORPUSCULAR VOLUME 95 fl (80-97); PLATELET COUNT 92 10^3/uL (150-450)
[2020-03-14] MEDS: PANTOPRAZOLE SODIUM 40 MG VIAL IV SCH ×2 (09:25→22:06)
[2020-03-14] MEDS ORDERED: FLUCONAZOLE 200 MG/NS RTU 200 MG/100 ML RTUPB IV SCH (10:00)
[2020-03-14] MEDS ORDERED: LACOSAMIDE INJ/PF 200 MG/20 ML SDV IV SCH (10:00)
[2020-03-14] MEDS: VANCOMYCIN HCL 500 MG in DEXTROSE 5%-WATER 100 ML IV SCH ×2 (10:21→19:48)
[2020-03-14] MEDS ORDERED: CARVEDILOL 12.5 MG TABLET PO ONE (12:00)
[2020-03-14] MEDS ORDERED: LISINOPRIL 5 MG TABLET PO ONE (12:00)
[2020-03-14] MEDS ORDERED: AMLODIPINE BESYLATE 10 MG TABLET PO ONE (12:00)
--- NOTE | 2020-03-14 14:54 | RADIOLOGY REPORT (SQ) ---
EXAM DESCRIPTION: MRI HEAD WITHOUT IMAGES COMPLETED DATE/TIME: 03/14/2020 2:40 pm REASON FOR STUDY: Altered menta status COMPARISON: None. TECHNIQUE: Multiplanar imaging includes non-contrasted T1, T2, FLAIR, and diffusion with ADC map seq uences. Images stored on PACS. LIMITATIONS: Motion artifact. FINDINGS: ANATOMY: No anomalies. Normal vascular flow voids. Pituitary fossa normal. CSF SPACES: Atrophy induced prominence of ventricles and CSF spaces. CEREBRUM: Old lacunar infarcts bilateral basal ganglia. High signal intensity lesions scattered thro ughout the white matter on FLAIR imaging with distribution suggesting micro-vascular ischemic changes . No evidence of hemorrhage, mass, or extraaxial fluid collection. POSTERIOR FOSSA: No signal alteration. No hemorrhage. No edema, masses or mass effect. Internal bettye tory canals, cerebello-pontine angles, mastoids normal. DIFFUSION IMAGING: Negative for acute or sub-acute infarction. ORBITS: No masses. Globes normal. PARANASAL SINUSES: No fluid levels. Mucosa normal. OTHER: No other significant finding. IMPRESSION: Chronic ischemic changes. EVIDENCE OF ACUTE STROKE: NO. TECHNICAL DOCUMENTATION: JOB ID: [id number] [employer]- All Rights Reserved Reading location - IP/workstation name: [email or web address]
[2020-03-14 16:06] LABS: ANION GAP 8 (5-19); BLOOD UREA NITROGEN 10 mg/dL (7-20); CALCIUM 9.2 mg/dL (8.4-10.2); CARBON DIOXIDE 25 mmol/L (22-30); CHLORIDE 103 mmol/L (98-107); GLUCOSE 88 mg/dL (75-110); POTASSIUM 3.7 mmol/L (3.6-5.0)
[2020-03-14] MEDS: DEXTROSE 5%-NORMAL SALINE 1,000 ML IV PRN (16:48)
[2020-03-14] MEDS ORDERED: ENALAPRILAT DIHYDRATE INJ/PF 1.25 MG/1 ML SDV IV PRN (16:54)
--- NOTE | 2020-03-14 17:21 | PDOC PROGRESS REPORT ---
Subjective Progress Note for:: 03/14/20 Subjective:: NIA JUAREZ is a 60 year old female who was found unresponsive on the bathroom floor today by a family member. Patient is not verbally responsive and is unable to contribute to her medical history. EMS reports that the patient's daughter informed them that she had a similar episode 1 year ago which resulted in a 1 week period of unresponsiveness with a gradual return to her usual state of health. EMS reported the patient to be febrile and to have had a tonic-c lonic seizure lasting approximately 60 seconds en route to the hospital. In the emergency room the patient was noted to have a contusion to her left face and was noted to be appropriately responsive to painful stimuli and to move all extremities however she remained verbally incoherent. She was additionally noted to have a fever of 102.4 with a normal white blood count and a lactic acid of 9.7. She was initially hypertensive at 220/120 which responded to treatment with labetalol. A CT of her head showed no acute changes. A lumbar puncture was performed and revealed a traumatic tap without evidence of acute infection. A history of hepatitis C was elicited from family members. Patient was subsequently admitted to the hospital for further evaluation and treatment. D2 hospital stay 03/14/20. She was seen and examined at bedside. She was found in bed awake, alert and conversant. She does complain of mild headache which she said has been going on for years. She is able to answer appropriately most questions but verbal output seems less. She is not slurring her speech. She cannot elaborate the circumstances surrounding her seizure episode. I tried calling her daughter to get more information but I was unable to reach her. MRI brain showed chronic ischemic changes, no acute stroke. Ammonia level normal. EEG ordered. Initial culture of CSF was negative x24 hours, Gram stain negative. Blood culture negative x24 hours. Urine culture growing gram- negative rods preliminary report. She is on ceftriaxone vancomycin and acyclovir. Reason For Visit: FEVER,ELEVATED LACTIC ACID,SEIZURE,HYPERTENSIVE Physical Exam Vital Signs: Temp Pulse Resp BP Pulse Ox 98.7 F 71 17 122/84 97 03/14/20 14:55 03/14/20 14:55 03/14/20 14:55 03/14/20 14:55 03/14/20 14:55 Intake & Output 03/13/20 03/14/20 03/15/20 06:59 06:59 06:59 Intake Total 2100 250 Output Total 1095 Balance 1005 250 Weight 53.8 kg General appearance: PRESENT: no acute distress, cooperative Head exam: PRESENT: atraumatic, normocephalic Eye exam: PRESENT: EOMI, PERRLA Mouth exam: PRESENT: moist Neck exam: PRESENT: full ROM Respiratory exam: PRESENT: clear to auscultation alex, symmetrical, unlabored Cardiovascular exam: PRESENT: RRR, +S1, +S2 Pulses: PRESENT: +2 pedal pulses bilateral GI/Abdominal exam: PRESENT: normal bowel sounds, soft. ABSENT: rebound, tenderness Extremities exam: PRESENT: full ROM Musculoskeletal exam: PRESENT: full ROM Neurological exam: PRESENT: alert, awake, oriented to person, oriented to place Psychiatric exam: PRESENT: normal mood Skin exam: PRESENT: normal color Results Laboratory Results: 03/14/20 06:32 03/13/20 03/13/20 03/13/20 15:30 15:30 15:30 WBC 8.3 RBC 4.89 Hgb 16.1 H Hct 48.2 H MCV 99 H MCH 33.0 MCHC 33.4 RDW 13.6 Plt Count 112 L Seg Neutrophils % 74.5 VBG pH VBG pCO2 VBG HCO3 VBG Base Excess Sodium 137.9 Potassium 3.6 Chloride 98 Carbon Dioxide 17 L Anion Gap 23 H BUN 7 Creatinine 0.75 Est GFR ( Amer) > 60 Glucose 131 H Lactic Acid 9.7 H Calcium 9.8 Total Bilirubin 1.9 H AST 101 H Alkaline Phosphatase 151 H Ammonia Total Protein 9.4 H Albumin 4.7 Urine Color Urine Appearance Urine pH Ur Specific [place] Urine Protein Urine Glucose (UA) Urine Ketones Urine Blood Urine RBC (Auto) Fluid Tube Number CSF Volume CSF Appearance CSF Color CSF WBC CSF RBC CSF Polymorphonuclear CSF Glucose CSF Total Protein 03/13/20 03/13/20 03/13/20 16:07 16:11 16:11 WBC RBC Hgb Hct MCV MCH MCHC RDW Plt Count Seg Neutrophils % VBG pH VBG pCO2 VBG HCO3 VBG Base Excess Sodium Potassium Chloride Carbon Dioxide Anion Gap BUN Creatinine Est GFR ( Amer) Glucose Lactic Acid Calcium Total Bilirubin AST Alkaline Phosphatase Ammonia Total Protein Albumin Urine Color SERGIO Urine Appearance SLIGHTLY-CLOUDY Urine pH 6.0 Ur Specific [place] 1.015 Urine Protein >=500 H Urine Glucose (UA) NEGATIVE Urine Ketones TRACE H Urine Blood SMALL H Urine RBC (Auto) 5 Fluid Tube Number 1 CSF Volume 4.0 CSF Appearance HAZY CSF Color PINK CSF WBC 6 H CSF RBC 4050 H CSF Polymorphonuclear 46 CSF Glucose 75 H CSF Total Protein 70 H 03/13/20 03/13/20 03/13/20 16:11 17:20 17:20 WBC RBC Hgb Hct MCV MCH MCHC RDW Plt Count Seg Neutrophils % VBG pH 7.40 VBG pCO2 36.6 VBG HCO3 22.2 VBG Base Excess -2.0 Sodium Potassium Chloride Carbon Dioxide Anion Gap BUN Creatinine Est GFR ( Amer) Glucose Lactic Acid Calcium Total Bilirubin AST Alkaline Phosphatase Ammonia 26.5 Total Protein Albumin Urine Color Urine Appearance Urine pH Ur Specific [place] Urine Protein Urine Glucose (UA) Urine Ketones Urine Blood Urine RBC (Auto) Fluid Tube Number 4 CSF Volume 4.0 CSF Appearance HAZY CSF Color PINK CSF WBC 11 H CSF RBC 5020 H CSF Polymorphonuclear 74 CSF Glucose CSF Total Protein 03/13/20 03/13/20 03/14/20 18:45 22:25 01:54 WBC RBC Hgb Hct MCV MCH MCHC RDW Plt Count Seg Neutrophils % VBG pH VBG pCO2 VBG HCO3 VBG Base Excess Sodium Potassium Chloride Carbon Dioxide Anion Gap BUN Creatinine Est GFR ( Amer) Glucose Lactic Acid 1.7 1.4 1.2 Calcium Total Bilirubin AST Alkaline Phosphatase Ammonia Total Protein Albumin Urine Color Urine Appearance Urine pH Ur Specific [place] Urine Protein Urine Glucose (UA) Urine Ketones Urine Blood Urine RBC (Auto) Fluid Tube Number CSF Volume CSF Appearance CSF Color CSF WBC CSF RBC CSF Polymorphonuclear CSF Glucose CSF Total Protein 03/14/20 03/14/20 03/14/20 05:09 05:09 06:32 WBC Cancelled 10.1 RBC Cancelled 4.55 Hgb Cancelled 15.0 Hct Cancelled 43.1 MCV Cancelled 95 D MCH Cancelled 32.9 MCHC Cancelled 34.7 RDW Cancelled 13.4 Plt Count Cancelled 92 L Seg Neutrophils % Cancelled 45.4 VBG pH VBG pCO2 VBG HCO3 VBG Base Excess Sodium 135.9 L Potassium 3.0 L* Chloride 99 Carbon Dioxide 25 Anion Gap 12 BUN 10 Creatinine 0.78 Est GFR ( Amer) > 60 Glucose 97 Lactic Acid Calcium 9.0 Total Bilirubin 1.8 H AST 76 H Alkaline Phosphatase 125 Ammonia Total Protein 8.3 H Albumin 4.0 Urine Color Urine Appearance Urine pH Ur Specific [place] Urine Protein Urine Glucose (UA) Urine Ketones Urine Blood Urine RBC (Auto) Fluid Tube Number CSF Volume CSF Appearance CSF Color CSF WBC CSF RBC CSF Polymorphonuclear CSF Glucose CSF Total Protein 03/13/20 15:30 Troponin I 0.040 Impressions: Chest X-Ray 03/13/20 15:29 IMPRESSION: NO ACUTE RADIOGRAPHIC FINDING IN THE CHEST. Head CT 03/13/20 15:32 IMPRESSION: MILD CHRONIC CHANGES OF ATROPHY AND MICROVASCULAR ISCHEMIA. NO ACUTE PROCESS. EVIDENCE OF ACUTE STROKE: NO. Head MRI 03/14/20 00:00 IMPRESSION: Chronic ischemic changes. EVIDENCE OF ACUTE STROKE: NO. Assessment and Plan - Diagnosis (1) Acute metabolic encephalopathy Is this a current diagnosis for this admission?: Yes Plan: - came in with unwitnessed fall and witnessed seizure by EMS. - per hx in the ED had a similar episode in the past. She was also seen at the ED last November for altered mental status associated with elevated blood pressure. -Fever 102.4, WBC normal - lactic acid 9.7>1.2 -Ammonia normal - LP CSF showed a bloody tap. corrected WBC (with traumatic tap) is 4, Glucose 75, Protein 70, RBC 5020 - MRI head chronic ischemic changes no acute stroke - Ddx. hypertensive encephalopathy, meningitis, HSV enceph, stroke -We will continue antibiotics until CSF culture reports are negative -HSV PCR pending -Antihypertensive medications resumed. As needed IV enalapril for elevated blood pressure. (2) Seizure Is this a current diagnosis for this admission?: Yes Plan: -Per history has 1 one episode before Not on any antiseizure medications EEG pending Keppra IV Seizure precautions Would need a neurology follow-up (3) Hepatitis C infection Qualifiers: Viral hepatitis chronicity: chronic Hepatic coma status: without hepatic coma Qualified Code(s): B18.2 - Chronic viral hepatitis C Is this a current diagnosis for this admission?: Yes Plan: -Has a history of hepatitis C infection not on any treatment. (4) Severe uncontrolled hypertension Is this a current diagnosis for this admission?: Yes Plan: - has a history of AMS associated with elevated BP - BP 211/147 in the ED currently 122/84 - resumed her lisinopril, amlodipine and carvedilol - enalapril PRN for systolic BP >200, diastolic >100 - Time Time Spent with patient: 25-34 minutes Anticipated Discharge Disposition: Home, Self Care Anticipated Discharge Timeframe: to be determined
[2020-03-14] MEDS ORDERED: ACETAMINOPHEN 325 MG TABLET PO PRN (18:33)
--- NOTE | 2020-03-14 18:52 | NEURO WORKBENCH EEG REPORT ---
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 This EEG was requested for seizures. EEG Interpretation This EEG was recorded in the awake and drowsy states. The awake EEG is characterized by a poorly organized background without a well-developed posterior dominant rhythm. There was a poorly formed posterior rhythm of 5-6Hz. The remainder of the background was characterized by a combination of theta and beta with some delta frequencies. Drowsiness was characterized by slowing of the background rhythms. Photic stimulation resulted in no significant changes. There were no epileptiform abnormalities. The EKG showed a regular rhythm. There was myogenic artifact that impaired interpretation. EEG Classification * Generalized background slowing EEG Impression This EEG is abnormal. It is consistent with nonspecific diffuse cerebral dysfunction. INTERPRETING NEUROLOGIST: Olamide Chen MD, FRCPC Board Certified in Neurology, with special qualification in Child Neurology, and in Clinical Neurophysiology [facility]
[2020-03-14] MEDS ORDERED: LEVETIRACETAM 500 MG/NACL-ISO 500 MG/100 ML RTUPB IV SCH (22:00)
[2020-03-14] MEDS: CARVEDILOL 12.5 MG TABLET PO SCH (22:06)
[2020-03-14] MEDS ORDERED: LEVETIRACETAM INJ/PF 500 MG/5 ML SDV IV ONE (23:14)
[2020-03-15] MEDS: ACYCLOVIR SODIUM 700 MG in NORMAL SALINE 100 ML IV SCH (05:20)
[2020-03-15] MEDS: CEFTRIAXONE 2 GM/D5W RTU 2 GM/50 ML RTUPB IV SCH ×2 (06:40→20:29)
[2020-03-15] MEDS ORDERED: PHARMACY COMMUNICATION ORDER MC ONE (07:30)
[2020-03-15 08:42] LABS: ALBUMIN 2.9 g/dL (3.5-5.0); ALKALINE PHOSPHATASE 91 U/L (38-126); ANION GAP 8 (5-19); ASPARTATE AMINO TRANSFERASE 51 U/L (14-36); BILIRUBIN,DIRECT 0.5 mg/dL (0.0-0.4); BLOOD UREA NITROGEN 14 mg/dL (7-20); CALCIUM 8.6 mg/dL (8.4-10.2); CARBON DIOXIDE 25 mmol/L (22-30); CHLORIDE 106 mmol/L (98-107); GLUCOSE 93 mg/dL (75-110); POTASSIUM 3.2 mmol/L (3.6-5.0); TOTAL PROTEIN 6.6 g/dL (6.3-8.2)
[2020-03-15] MEDS: VANCOMYCIN HCL 500 MG in DEXTROSE 5%-WATER 100 ML IV SCH ×2 (08:53→20:47)
[2020-03-15] MEDS ORDERED: (PENDING PHARMACY ID) (Lisinopril [Zestril] 2.5 MG) PO SCH (10:00)
[2020-03-15] MEDS ORDERED: LISINOPRIL 5 MG TABLET PO SCH (10:00)
[2020-03-15] MEDS: AMLODIPINE BESYLATE 10 MG TABLET PO SCH (10:31)
[2020-03-15] MEDS: PANTOPRAZOLE SODIUM 40 MG VIAL IV SCH ×2 (10:31→21:06)
[2020-03-15] MEDS: CARVEDILOL 12.5 MG TABLET PO SCH ×2 (10:31→21:06)
[2020-03-15 11:33] LABS: ABSOLUTE EOSINOPHILS # (AUTO) 0.1 10^3/uL (0.0-0.6); ABSOLUTE LYMPHOCYTES (AUTO) 1.3 10^3/uL (0.5-4.7); ABSOLUTE MONOCYTES (AUTO) 0.8 10^3/uL (0.1-1.4); ABSOLUTE NEUT (AUTO) 2.5 10^3/uL (1.7-8.2); BASOPHILS % (AUTO) 0.9 % (0-2); HEMOGLOBIN 13.5 g/dL (12.0-15.5); LYMPHOCYTES % (AUTO) 27.9 % (13-45); MEAN CORPUSCULAR HEMOGLOBIN 33.5 pg (27.0-33.4); MEAN CORPUSCULAR HGB CONC 34.7 g/dL (32.0-36.0); MEAN CORPUSCULAR VOLUME 97 fl (80-97); MONOCYTES % (AUTO) 17.1 % (3-13); RED BLOOD COUNT 4.04 10^6/uL (3.72-5.28); RED CELL DISTRIBUTION WIDTH 13.3 % (11.5-14.0); SEGMENTED NEUTROPHILS % (AUTO) 51.1 % (42-78); TOTAL CELLS COUNTED % (AUTO) 100 %; WHITE BLOOD COUNT 4.8 10^3/uL (4.0-10.5)
[2020-03-15 12:00] LABS: PLATELET COUNT 70 10^3/uL (150-450)
[2020-03-15] MEDS: ACYCLOVIR SODIUM 700 MG in NORMAL SALINE 250 ML IV SCH ×2 (13:46→21:07)
--- NOTE | 2020-03-15 17:32 | PDOC PROGRESS REPORT ---
Subjective Progress Note for:: 03/15/20 Subjective:: NIA JUAREZ is a 60 year old female who was found unresponsive on the bathroom floor today by a family member. Patient is not verbally responsive and is unable to contribute to her medical history. EMS reports that the patient's daughter informed them that she had a similar episode 1 year ago which resulted in a 1 week period of unresponsiveness with a gradual return to her usual state of health. EMS reported the patient to be febrile and to have had a tonic-c lonic seizure lasting approximately 60 seconds en route to the hospital. In the emergency room the patient was noted to have a contusion to her left face and was noted to be appropriately responsive to painful stimuli and to move all extremities however she remained verbally incoherent. She was additionally noted to have a fever of 102.4 with a normal white blood count and a lactic acid of 9.7. She was initially hypertensive at 220/120 which responded to treatment with labetalol. A CT of her head showed no acute changes. A lumbar puncture was performed and revealed a traumatic tap without evidence of acute infection. A history of hepatitis C was elicited from family members. Patient was subsequently admitted to the hospital for further evaluation and treatment. D2 hospital stay 03/14/20. She was seen and examined at bedside. She was found in bed awake, alert and conversant. She does complain of mild headache which she said has been going on for years. She is able to answer appropriately most questions but verbal output seems less. She is not slurring her speech. She cannot elaborate the circumstances surrounding her seizure episode. I tried calling her daughter to get more information but I was unable to reach her. MRI brain showed chronic ischemic changes, no acute stroke. Ammonia level normal. EEG ordered. Initial culture of CSF was negative x24 hours, Gram stain negative. Blood culture negative x24 hours. Urine culture growing gram- negative rods preliminary report. She is on ceftriaxone vancomycin and acyclovir. D3 hospital stay 03/15/20. She was seen and examined at bedside. She denied any headache, chest pain, shortness of breath. She seems more awake alert and conversant today. I was able to talk to her daughter Leona and she told me that the confusion and forgetfulness has been happening for the past several months now. The daughter also confirmed that she had prior strokes in the past and was not taking any medications. MRI of the brain showed chronic ischemic changes. I suspect that her dementia is secondary to vascular dementia. Final report of CSF culture not yet back, will continue antibiotics for now until cultures come back negative. Reason For Visit: FEVER,ELEVATED LACTIC ACID,SEIZURE,HYPERTENSIVE Physical Exam Vital Signs: Temp Pulse Resp BP Pulse Ox 98.4 F 73 18 118/84 94 03/15/20 10:00 03/15/20 14:00 03/15/20 08:33 03/15/20 08:33 03/15/20 08:33 Intake & Output 03/14/20 03/15/20 03/16/20 06:59 06:59 06:59 Intake Total 2100 862 50 Output Total 1095 650 Balance 1005 212 50 Weight 53.8 kg 54.2 kg General appearance: PRESENT: no acute distress, cooperative Head exam: PRESENT: atraumatic, normocephalic Eye exam: PRESENT: EOMI, PERRLA Mouth exam: PRESENT: moist, neck supple Neck exam: PRESENT: full ROM Respiratory exam: PRESENT: clear to auscultation alex, symmetrical, unlabored Cardiovascular exam: PRESENT: RRR, +S1, +S2 GI/Abdominal exam: PRESENT: normal bowel sounds, soft. ABSENT: rebound, tenderness Extremities exam: PRESENT: full ROM Musculoskeletal exam: PRESENT: full ROM Neurological exam: PRESENT: alert, awake, oriented to person - Not oriented to place or time Psychiatric exam: PRESENT: normal mood Skin exam: PRESENT: normal color Results Laboratory Results: 03/15/20 11:17 03/15/20 07:23 03/15/20 03/15/20 03/15/20 07:23 07:23 07:23 WBC Cancelled RBC Cancelled Hgb Cancelled Hct Cancelled MCV Cancelled MCH Cancelled MCHC Cancelled RDW Cancelled Plt Count Cancelled Seg Neutrophils % Cancelled Sodium 138.5 Potassium 3.2 L Chloride 106 Carbon Dioxide 25 Anion Gap 8 BUN 14 Creatinine Cancelled 1.33 H Est GFR ( Amer) Cancelled 49 L Est GFR (Non-Af Amer) Cancelled Glucose 93 Calcium 8.6 Total Bilirubin 1.0 AST 51 H Alkaline Phosphatase 91 Total Protein 6.6 Albumin 2.9 L 03/15/20 11:17 WBC 4.8 RBC 4.04 Hgb 13.5 Hct 39.0 MCV 97 MCH 33.5 H MCHC 34.7 RDW 13.3 Plt Count 70 L Seg Neutrophils % 51.1 Sodium Potassium Chloride Carbon Dioxide Anion Gap BUN Creatinine Est GFR ( Amer) Est GFR (Non-Af Amer) Glucose Calcium Total Bilirubin AST Alkaline Phosphatase Total Protein Albumin 03/13/20 16:07 Catheterized Urine Urine Culture - Final Escherichia Coli 03/13/20 15:30 Troponin I 0.040 Impressions: Chest X-Ray 03/13/20 15:29 IMPRESSION: NO ACUTE RADIOGRAPHIC FINDING IN THE CHEST. Head CT 03/13/20 15:32 IMPRESSION: MILD CHRONIC CHANGES OF ATROPHY AND MICROVASCULAR ISCHEMIA. NO ACUTE PROCESS. EVIDENCE OF ACUTE STROKE: NO. Head MRI 03/14/20 00:00 IMPRESSION: Chronic ischemic changes. EVIDENCE OF ACUTE STROKE: NO. Assessment and Plan - Diagnosis (1) Acute metabolic encephalopathy Is this a current diagnosis for this admission?: Yes Plan: - came in with unwitnessed fall and witnessed seizure by EMS. - per hx in the ED had a similar episode in the past. She was also seen at the ED last November for altered mental status associated with elevated blood pressure. -Fever 102.4, WBC normal - lactic acid 9.7>1.2 -Ammonia normal - LP CSF showed a bloody tap. corrected WBC (with traumatic tap) is 4, Glucose 75, Protein 70, RBC 5020 - MRI head chronic ischemic changes no acute stroke - Ddx. hypertensive encephalopathy, vascular dementia, meningitis, HSV enceph, stroke -We will continue antibiotics until CSF culture reports are negative -aspirin, statin and memantine for vascular dementia -HSV PCR pending -Antihypertensive medications resumed. As needed IV enalapril for elevated blood pressure. (2) Seizure Is this a current diagnosis for this admission?: Yes Plan: -Per history has 1 one episode before. Seizure witnessed by EMS on this admission Not on any antiseizure medications EEG abnormal consistent with nonspecific diffuse cerebral dysfunction. Keppra IV switched to oral Seizure precautions Would need a neurology follow-up (3) Hepatitis C infection Qualifiers: Viral hepatitis chronicity: chronic Hepatic coma status: without hepatic coma Qualified Code(s): B18.2 - Chronic viral hepatitis C Is this a current diagnosis for this admission?: Yes Plan: -Has a history of hepatitis C infection not on any treatment. (4) Severe uncontrolled hypertension Is this a current diagnosis for this admission?: Yes Plan: - has a history of AMS associated with elevated BP - BP 211/147 in the ED currently 122/84 - resumed her lisinopril, amlodipine and carvedilol - enalapril PRN for systolic BP >200, diastolic >100 - Time Time Spent with patient: 25-34 minutes Anticipated Discharge Disposition: Home, Self Care Anticipated Discharge Timeframe: within 48 hours
[2020-03-15] MEDS: ATORVASTATIN CALCIUM 40 MG TABLET PO SCH (21:06)
[2020-03-15] MEDS: LEVETIRACETAM 500 MG TABLET PO SCH (21:06)
[2020-03-16] MEDS: DEXTROSE 5%-NORMAL SALINE 1,000 ML IV PRN (04:24)
[2020-03-16] MEDS: ACYCLOVIR SODIUM 700 MG in NORMAL SALINE 250 ML IV SCH ×2 (05:08→15:49)
[2020-03-16 06:23] LABS: ABSOLUTE EOSINOPHILS # (AUTO) 0.2 10^3/uL (0.0-0.6); ABSOLUTE MONOCYTES (AUTO) 0.7 10^3/uL (0.1-1.4); ABSOLUTE NEUT (AUTO) 2.5 10^3/uL (1.7-8.2); BASOPHILS % (AUTO) 0.8 % (0-2); HEMOGLOBIN 12.3 g/dL (12.0-15.5); LYMPHOCYTES % (AUTO) 36.7 % (13-45); MEAN CORPUSCULAR HEMOGLOBIN 33.1 pg (27.0-33.4); MEAN CORPUSCULAR HGB CONC 34.2 g/dL (32.0-36.0); MEAN CORPUSCULAR VOLUME 97 fl (80-97); MONOCYTES % (AUTO) 13.1 % (3-13); RED BLOOD COUNT 3.72 10^6/uL (3.72-5.28); RED CELL DISTRIBUTION WIDTH 13.2 % (11.5-14.0); SEGMENTED NEUTROPHILS % (AUTO) 45.4 % (42-78); TOTAL CELLS COUNTED % (AUTO) 100 %; WHITE BLOOD COUNT 5.4 10^3/uL (4.0-10.5)
[2020-03-16 06:40] LABS: ALBUMIN 2.7 g/dL (3.5-5.0); ALKALINE PHOSPHATASE 76 U/L (38-126); ANION GAP 11 (5-19); ASPARTATE AMINO TRANSFERASE 45 U/L (14-36); BILIRUBIN,DIRECT 0.3 mg/dL (0.0-0.4); BILIRUBIN,TOTAL 0.6 mg/dL (0.2-1.3); BLOOD UREA NITROGEN 18 mg/dL (7-20); CALCIUM 8.5 mg/dL (8.4-10.2); CARBON DIOXIDE 21 mmol/L (22-30); CHLORIDE 105 mmol/L (98-107); GLUCOSE 151 mg/dL (75-110); TOTAL PROTEIN 6.2 g/dL (6.3-8.2)
[2020-03-16 06:44] LABS: POTASSIUM 2.7 mmol/L (3.6-5.0)
[2020-03-16 06:57] LABS: PLATELET COUNT 72 10^3/uL (150-450)
[2020-03-16] MEDS ORDERED: RINGERS SOLUTION,LACTATED 1,000 ML IV PRN (07:40)
[2020-03-16] MEDS: POTASSI CL 20 MEQ/50 ML RIDER 20 MEQ/50 ML RTUPB IV SCH ×3 (09:29→17:31)
[2020-03-16] MEDS: NORMAL SALINE 1000 ML 1,000 ML IV PRN (09:30)
[2020-03-16] MEDS: ASPIRIN 81 MG TABLET, CHEWABLE PO SCH (09:30)
[2020-03-16] MEDS: LEVETIRACETAM 500 MG TABLET PO SCH ×2 (09:30→21:33)
[2020-03-16] MEDS: AMLODIPINE BESYLATE 10 MG TABLET PO SCH (09:30)
[2020-03-16] MEDS: PANTOPRAZOLE SODIUM 40 MG VIAL IV SCH ×2 (09:30→21:33)
[2020-03-16] MEDS: CARVEDILOL 12.5 MG TABLET PO SCH ×2 (09:30→21:33)
[2020-03-16] MEDS: CEFTRIAXONE 2 GM/D5W RTU 2 GM/50 ML RTUPB IV SCH ×2 (09:30→20:41)
[2020-03-16] MEDS: LISINOPRIL 10 MG TABLET PO SCH (09:30)
[2020-03-16] MEDS: MEMANTINE HCL 10 MG TABLET PO SCH (09:30)
--- NOTE | 2020-03-16 12:30 | PDOC PROGRESS REPORT ---
Subjective Progress Note for:: 03/16/20 Subjective:: NIA JUAREZ is a 60 year old female who was found unresponsive on the bathroom floor today by a family member. Patient is not verbally responsive and is unable to contribute to her medical history. EMS reports that the patient's daughter informed them that she had a similar episode 1 year ago which resulted in a 1 week period of unresponsiveness with a gradual return to her usual state of health. EMS reported the patient to be febrile and to have had a tonic-c lonic seizure lasting approximately 60 seconds en route to the hospital. In the emergency room the patient was noted to have a contusion to her left face and was noted to be appropriately responsive to painful stimuli and to move all extremities however she remained verbally incoherent. She was additionally noted to have a fever of 102.4 with a normal white blood count and a lactic acid of 9.7. She was initially hypertensive at 220/120 which responded to treatment with labetalol. A CT of her head showed no acute changes. A lumbar puncture was performed and revealed a traumatic tap without evidence of acute infection. A history of hepatitis C was elicited from family members. Patient was subsequently admitted to the hospital for further evaluation and treatment. D2 hospital stay 03/14/20. She was seen and examined at bedside. She was found in bed awake, alert and conversant. She does complain of mild headache which she said has been going on for years. She is able to answer appropriately most questions but verbal output seems less. She is not slurring her speech. She cannot elaborate the circumstances surrounding her seizure episode. I tried calling her daughter to get more information but I was unable to reach her. MRI brain showed chronic ischemic changes, no acute stroke. Ammonia level normal. EEG ordered. Initial culture of CSF was negative x24 hours, Gram stain negative. Blood culture negative x24 hours. Urine culture growing gram- negative rods preliminary report. She is on ceftriaxone vancomycin and acyclovir. D3 hospital stay 03/15/20. She was seen and examined at bedside. She denied any headache, chest pain, shortness of breath. She seems more awake alert and conversant today. I was able to talk to her daughter Leona and she told me that the confusion and forgetfulness has been happening for the past several months now. The daughter also confirmed that she had prior strokes in the past and was not taking any medications. MRI of the brain showed chronic ischemic changes. I suspect that her dementia is secondary to vascular dementia. Final report of CSF culture not yet back, will continue antibiotics for now until cultures come back negative. D4 Hospital stay 03/16/20.She was seen and examined at bedside. She denied any chest pain, headache, abdominal pain. Afebrile with good appetite. Blood pressure better controlled. Reynoso catheter taken out today and I have asked the nurse to sit her up on a chair. Reason For Visit: FEVER,ELEVATED LACTIC ACID,SEIZURE,HYPERTENSIVE Physical Exam Vital Signs: Temp Pulse Resp BP Pulse Ox 98.5 F 72 16 136/80 H 96 03/16/20 08:54 03/16/20 08:40 03/16/20 08:40 03/16/20 08:40 03/16/20 08:40 Intake & Output 03/15/20 03/16/20 03/17/20 06:59 06:59 05:59 Intake Total 1862 1436 Output Total 650 1900 Balance 1212 -464 Weight 54.2 kg 56 kg General appearance: PRESENT: no acute distress, cooperative Head exam: PRESENT: atraumatic, normocephalic Eye exam: PRESENT: EOMI, PERRLA Mouth exam: PRESENT: moist Neck exam: PRESENT: full ROM Respiratory exam: PRESENT: clear to auscultation alex, symmetrical, unlabored Cardiovascular exam: PRESENT: RRR, +S1, +S2 Pulses: PRESENT: +2 pedal pulses bilateral GI/Abdominal exam: PRESENT: normal bowel sounds, soft. ABSENT: rebound, tenderness Extremities exam: PRESENT: full ROM Musculoskeletal exam: PRESENT: full ROM Neurological exam: PRESENT: alert, awake, oriented to person, oriented to time, oriented to situation Skin exam: PRESENT: normal color Results Laboratory Results: 03/16/20 05:15 03/16/20 05:15 03/15/20 03/16/20 03/16/20 11:17 05:15 05:15 WBC 4.8 5.4 RBC 4.04 3.72 Hgb 13.5 12.3 Hct 39.0 36.0 MCV 97 97 MCH 33.5 H 33.1 MCHC 34.7 34.2 RDW 13.3 13.2 Plt Count 70 L 72 L Seg Neutrophils % 51.1 45.4 Sodium 137.1 Potassium 2.7 L* Chloride 105 Carbon Dioxide 21 L Anion Gap 11 BUN 18 Creatinine 1.35 H Est GFR ( Amer) 48 L Glucose 151 H Calcium 8.5 Total Bilirubin 0.6 AST 45 H Alkaline Phosphatase 76 Total Protein 6.2 L Albumin 2.7 L 03/13/20 16:11 Cerebral Spinal Fluid - Tube 3 (Csf) Gram Stain - Final 03/13/20 16:11 Cerebral Spinal Fluid - Tube 3 (Csf) CSF Culture - Final NO GROWTH 3 DAYS 03/13/20 16:07 Catheterized Urine Urine Culture - Final Escherichia Coli 03/13/20 15:30 Troponin I 0.040 Impressions: Chest X-Ray 03/13/20 15:29 IMPRESSION: NO ACUTE RADIOGRAPHIC FINDING IN THE CHEST. Head CT 03/13/20 15:32 IMPRESSION: MILD CHRONIC CHANGES OF ATROPHY AND MICROVASCULAR ISCHEMIA. NO ACUTE PROCESS. EVIDENCE OF ACUTE STROKE: NO. Head MRI 03/14/20 00:00 IMPRESSION: Chronic ischemic changes. EVIDENCE OF ACUTE STROKE: NO. Assessment and Plan - Diagnosis (1) Acute metabolic encephalopathy Is this a current diagnosis for this admission?: Yes Plan: - came in with unwitnessed fall and witnessed seizure by EMS. - per hx in the ED had a similar episode in the past. She was also seen at the ED last November for altered mental status associated with elevated blood pressure. -Fever 102.4, WBC normal - lactic acid 9.7>1.2 -Ammonia normal - LP CSF showed a bloody tap. corrected WBC (with traumatic tap) is 4, Glucose 75, Protein 70, RBC 5020 - MRI head chronic ischemic changes no acute stroke - Ddx. hypertensive encephalopathy, vascular dementia, meningitis, HSV enceph, stroke -We will continue antibiotics until CSF culture reports are negative -aspirin, statin and memantine for vascular dementia -HSV PCR pending -Antihypertensive medications resumed. As needed IV enalapril for elevated blood pressure. (2) Severe uncontrolled hypertension Is this a current diagnosis for this admission?: Yes Plan: - has a history of AMS associated with elevated BP - BP 211/147 in the ED currently 122/84 - resumed her lisinopril, amlodipine and carvedilol - enalapril PRN for systolic BP >200, diastolic >100 (3) Seizure Is this a current diagnosis for this admission?: Yes Plan: -Per history has 1 one episode before. Seizure witnessed by EMS on this admission Not on any antiseizure medications EEG abnormal consistent with nonspecific diffuse cerebral dysfunction. Keppra IV switched to oral Seizure precautions Would need a neurology follow-up (4) Hepatitis C infection Qualifiers: Viral hepatitis chronicity: chronic Hepatic coma status: without hepatic coma Qualified Code(s): B18.2 - Chronic viral hepatitis C Is this a current diagnosis for this admission?: Yes Plan: -Has a history of hepatitis C infection not on any treatment. - Time Time Spent with patient: 25-34 minutes Anticipated Discharge Disposition: Home, Self Care Anticipated Discharge Timeframe: within 48 hours
[2020-03-16] MEDS ORDERED: POTASSIUM CHLORIDE 20 MEQ/50 ML RTU IV ONE (16:15)
[2020-03-16] MEDS: ATORVASTATIN CALCIUM 40 MG TABLET PO SCH (21:33)
[2020-03-17] MEDS: NORMAL SALINE 1000 ML 1,000 ML IV PRN (01:42)
[2020-03-17 06:20] LABS: ABSOLUTE EOSINOPHILS # (AUTO) 0.3 10^3/uL (0.0-0.6); ABSOLUTE LYMPHOCYTES (AUTO) 1.9 10^3/uL (0.5-4.7); ABSOLUTE MONOCYTES (AUTO) 0.6 10^3/uL (0.1-1.4); EOSINOPHILS % (AUTO) 6.1 % (0-6); HEMATOCRIT 38.7 % (36.0-47.0); HEMOGLOBIN 13.4 g/dL (12.0-15.5); LYMPHOCYTES % (AUTO) 39.2 % (13-45); MEAN CORPUSCULAR HEMOGLOBIN 33.6 pg (27.0-33.4); MEAN CORPUSCULAR HGB CONC 34.7 g/dL (32.0-36.0); MEAN CORPUSCULAR VOLUME 97 fl (80-97); MONOCYTES % (AUTO) 12.8 % (3-13); RED BLOOD COUNT 3.99 10^6/uL (3.72-5.28); RED CELL DISTRIBUTION WIDTH 13.6 % (11.5-14.0); SEGMENTED NEUTROPHILS % (AUTO) 40.9 % (42-78); TOTAL CELLS COUNTED % (AUTO) 100 %; WHITE BLOOD COUNT 4.9 10^3/uL (4.0-10.5)
[2020-03-17 06:52] LABS: PLATELET COUNT 91 10^3/uL (150-450)
[2020-03-17 08:46] LABS: ALBUMIN 3.2 g/dL (3.5-5.0); ALKALINE PHOSPHATASE 99 U/L (38-126); ANION GAP 10 (5-19); ASPARTATE AMINO TRANSFERASE 49 U/L (14-36); BILIRUBIN,DIRECT 0.2 mg/dL (0.0-0.4); BILIRUBIN,TOTAL 0.5 mg/dL (0.2-1.3); BLOOD UREA NITROGEN 12 mg/dL (7-20); CALCIUM 9.2 mg/dL (8.4-10.2); CARBON DIOXIDE 23 mmol/L (22-30); CHLORIDE 108 mmol/L (98-107); GLUCOSE 92 mg/dL (75-110); POTASSIUM 3.4 mmol/L (3.6-5.0); TOTAL PROTEIN 7.2 g/dL (6.3-8.2)
[2020-03-17] MEDS ORDERED: POTASSIUM CHLORIDE 10 MEQ TABLET.ER PO ONE (09:25)
[2020-03-17] MEDS: CEFTRIAXONE 2 GM/D5W RTU 2 GM/50 ML RTUPB IV SCH (10:10)
[2020-03-17] MEDS: PANTOPRAZOLE SODIUM 40 MG VIAL IV SCH (10:10)
[2020-03-17] MEDS: AMLODIPINE BESYLATE 10 MG TABLET PO SCH (10:11)
[2020-03-17] MEDS: LISINOPRIL 10 MG TABLET PO SCH (10:11)
[2020-03-17] MEDS: ASPIRIN 81 MG TABLET, CHEWABLE PO SCH (10:11)
[2020-03-17] MEDS: LEVETIRACETAM 500 MG TABLET PO SCH (10:11)
[2020-03-17] MEDS: MEMANTINE HCL 10 MG TABLET PO SCH (10:12)
[2020-03-17] MEDS: CARVEDILOL 12.5 MG TABLET PO SCH (10:12)
[2020-03-17 11:51] VITALS: BP 152/98
[2020-03-18 08:26] LABS: HSV SOURCE CSF
--- NOTE | 2020-03-18 20:33 | PDOC DISCHARGE SUMMARY ---
Impression - Admit/DC Date/PCP Admission Date/Primary Care Provider: 03/13/20 20:06 Discharge Date: 03/17/20 - Discharge Diagnosis (1) Acute metabolic encephalopathy Is this a current diagnosis for this admission?: Yes (2) Severe uncontrolled hypertension Is this a current diagnosis for this admission?: Yes (3) Seizure Is this a current diagnosis for this admission?: Yes (4) Hepatitis C infection Is this a current diagnosis for this admission?: Yes - Assessment Summary: (1) Acute metabolic encephalopathy Is this a current diagnosis for this admission?: Yes Plan: - came in with unwitnessed fall and witnessed seizure by EMS. - per hx in the ED had a similar episode in the past. She was also seen at the ED last November for altered mental status associated with elevated blood pressure. -Fever 102.4, WBC normal - lactic acid 9.7>1.2 -Ammonia normal - LP CSF showed a bloody tap. corrected WBC (with traumatic tap) is 4, Glucose 75, Protein 70, RBC 5020 - MRI head chronic ischemic changes no acute stroke - Ddx. hypertensive encephalopathy, vascular dementia, meningitis, HSV enceph, stroke -We will continue antibiotics until CSF culture reports are negative -aspirin, statin and memantine for vascular dementia -HSV PCR pending -Antihypertensive medications resumed. As needed IV enalapril for elevated blood pressure. (2) Severe uncontrolled hypertension Is this a current diagnosis for this admission?: Yes Plan: - has a history of AMS associated with elevated BP - BP 211/147 in the ED currently 122/84 - resumed her lisinopril, amlodipine and carvedilol - enalapril PRN for systolic BP >200, diastolic >100 (3) Seizure Is this a current diagnosis for this admission?: Yes Plan: -Per history has 1 one episode before. Seizure witnessed by EMS on this admission Not on any antiseizure medications EEG abnormal consistent with nonspecific diffuse cerebral dysfunction. Keppra IV switched to oral Seizure precautions Would need a neurology follow-up (4) Hepatitis C infection Qualifiers: Viral hepatitis chronicity: chronic Hepatic coma status: without hepatic coma Qualified Code(s): B18.2 - Chronic viral hepatitis C Is this a current diagnosis for this admission?: Yes Plan: -Has a history of hepatitis C infection not on any treatment. - Additional Information Discharge Diet: As Tolerated Discharge Activity: Activity As Tolerated Referrals: PIPPA VELAZCO MD [[facility]] - 03/25/20 10:30 am (left a message 03-18-20 (10:06)) ARELIS RICH MD [[facility]] - (left a message 03-18-20 (10:01)) Prescriptions: Aspirin [Aspirin 81 mg Chewable Tablet] 81 mg PO DAILY 60 Days #60 tab.chew Cefuroxime Axetil [Ceftin 500 mg Tablet] 1 tab PO BID #20 tablet Levetiracetam [Keppra 500 mg Tablet] 500 mg PO Q12 60 Days #120 tablet Atorvastatin Calcium [Lipitor 40 mg Tablet] 40 mg PO QHS 30 Days #30 tablet Memantine HCl [Namenda 10 mg Tablet] 10 mg PO DAILY 60 Days #60 tablet Lisinopril [Zestril] 5 mg PO DAILY 60 Days #60 tab Home Medications: Amlodipine Besylate [Norvasc 10 mg Tablet] 10 mg PO DAILY 03/14/20 Carvedilol [Coreg 12.5 mg Tablet] 12.5 mg PO Q12 03/14/20 Aspirin [Aspirin 81 mg Chewable Tablet] 81 mg PO DAILY 60 Days #60 tab.chew 03/17/20 Atorvastatin Calcium [Lipitor 40 mg Tablet] 40 mg PO QHS 30 Days #30 tablet 03/17/20 Cefuroxime Axetil [Ceftin 500 mg Tablet] 1 tab PO BID #20 tablet 03/17/20 Levetiracetam [Keppra 500 mg Tablet] 500 mg PO Q12 60 Days #120 tablet 03/17/20 Lisinopril [Zestril] 5 mg PO DAILY 60 Days #60 tab 03/17/20 Memantine HCl [Namenda 10 mg Tablet] 10 mg PO DAILY 60 Days #60 tablet 03/17/20 History of Present Illiness History of Present Illness: NIA JUAREZ is a 60 year old female who was found unresponsive on the bathroom floor today by a family member. Patient is not verbally responsive and is unable to contribute to her medical history. EMS reports that the patient's daughter informed them that she had a similar episode 1 year ago which resulted in a 1 week period of unresponsiveness with a gradual return to her usual state of health. EMS reported the patient to be febrile and to have had a tonic- clonic seizure lasting approximately 60 seconds en route to the hospital. In the emergency room the patient was noted to have a contusion to her left face and was noted to be appropriately responsive to painful stimuli and to move all extremities however she remained verbally incoherent. She was additionally noted to have a fever of 102.4 with a normal white blood count and a lactic acid of 9.7. She was initially hypertensive at 220/120 which responded to treatment with labetalol. A CT of her head showed no acute changes. A lumbar puncture was performed and revealed a traumatic tap without evidence of acute infection. A history of hepatitis C was elicited from family members. Patient was subsequently admitted to the hospital for further evaluation and treatment. Hospital Course Hospital Course: D2 hospital stay 03/14/20. She was seen and examined at bedside. She was found in bed awake, alert and conversant. She does complain of mild headache which she said has been going on for years. She is able to answer appropriately most questions but verbal output seems less. She is not slurring her speech. She cannot elaborate the circumstances surrounding her seizure episode. I tried calling her daughter to get more information but I was unable to reach her. MRI brain showed chronic ischemic changes, no acute stroke. Ammonia level normal. EEG ordered. Initial culture of CSF was negative x24 hours, Gram stain negative. Blood culture negative x24 hours. Urine culture growing gram- negative rods preliminary report. She is on ceftriaxone vancomycin and acyclovir. D3 hospital stay 03/15/20. She was seen and examined at bedside. She denied any headache, chest pain, shortness of breath. She seems more awake alert and conversant today. I was able to talk to her daughter Leona and she told me that the confusion and forgetfulness has been happening for the past several months now. The daughter also confirmed that she had prior strokes in the past and was not taking any medications. MRI of the brain showed chronic ischemic changes. I suspect that her dementia is secondary to vascular dementia. Final report of CSF culture not yet back, will continue antibiotics for now until cultures come back negative. D4 Hospital stay 03/16/20.She was seen and examined at bedside. She denied any chest pain, headache, abdominal pain. Afebrile with good appetite. Blood pressure better controlled. Reynoso catheter taken out today and I have asked the nurse to sit her up on a chair. D5 hospital stay. afebrile, HSV negative. Good appetite. discharged. Advised neurology follow up Physical Exam Vital Signs: Temp Pulse Resp BP Pulse Ox 98.0 F 59 L 16 170/102 H 97 03/17/20 10:23 03/17/20 10:23 03/17/20 10:23 03/17/20 10:23 03/17/20 10:23 Intake & Output 03/17/20 03/18/20 03/19/20 06:59 06:59 06:59 Intake Total 1480 Output Total 750 Balance 730 Weight General appearance: PRESENT: no acute distress, cooperative, hard of hearing Head exam: PRESENT: atraumatic, normocephalic Eye exam: PRESENT: EOMI, PERRLA Mouth exam: PRESENT: moist Neck exam: PRESENT: full ROM Respiratory exam: PRESENT: clear to auscultation alex, symmetrical, unlabored Cardiovascular exam: PRESENT: RRR, +S1, +S2 GI/Abdominal exam: PRESENT: normal bowel sounds, soft. ABSENT: rebound, tenderness Extremities exam: PRESENT: full ROM Musculoskeletal exam: PRESENT: full ROM Neurological exam: PRESENT: awake, oriented to person. ABSENT: oriented to place, oriented to time Psychiatric exam: PRESENT: normal mood Skin exam: PRESENT: normal color Results Laboratory Results: WBC 4.9 10^3/uL (4.0-10.5) 03/17/20 04:57 RBC 3.99 10^6/uL (3.72-5.28) 03/17/20 04:57 Hgb 13.4 g/dL (12.0-15.5) 03/17/20 04:57 Hct 38.7 % (36.0-47.0) 03/17/20 04:57 MCV 97 fl (80-97) 03/17/20 04:57 MCH 33.6 pg (27.0-33.4) H 03/17/20 04:57 MCHC 34.7 g/dL (32.0-36.0) 03/17/20 04:57 RDW 13.6 % (11.5-14.0) 03/17/20 04:57 Plt Count 91 10^3/uL (150-450) L 03/17/20 04:57 Lymph % (Auto) 39.2 % (13-45) 03/17/20 04:57 [place] % (Auto) 12.8 % (3-13) 03/17/20 04:57 Eos % (Auto) 6.1 % (0-6) H 03/17/20 04:57 Baso % (Auto) 1.0 % (0-2) 03/17/20 04:57 Absolute Neuts (auto) 2.0 10^3/uL (1.7-8.2) 03/17/20 04:57 Absolute Lymphs (auto) 1.9 10^3/uL (0.5-4.7) 03/17/20 04:57 Absolute Monos (auto) 0.6 10^3/uL (0.1-1.4) 03/17/20 04:57 Absolute Eos (auto) 0.3 10^3/uL (0.0-0.6) 03/17/20 04:57 Absolute Basos (auto) 0.0 10^3/uL (0.0-0.2) 03/17/20 04:57 Seg Neutrophils % 40.9 % (42-78) L 03/17/20 04:57 Platelet Estimate Cancelled 03/15/20 07:23 PT 16.9 SEC (11.4-15.4) H 03/14/20 05:09 INR 1.36 03/14/20 05:09 VBG pH 7.40 (7.30-7.42) 03/13/20 17:20 VBG pCO2 36.6 mmHg (35-63) 03/13/20 17:20 VBG HCO3 22.2 mmol/L (20-32) 03/13/20 17:20 VBG Base Excess -2.0 mmol/L 03/13/20 17:20 Sodium 141.1 mmol/L (137-145) 03/17/20 04:57 Potassium 3.4 mmol/L (3.6-5.0) L 03/17/20 04:57 Chloride 108 mmol/L (98-107) H 03/17/20 04:57 Carbon Dioxide 23 mmol/L (22-30) 03/17/20 04:57 Anion Gap 10 (5-19) 03/17/20 04:57 BUN 12 mg/dL (7-20) 03/17/20 04:57 Creatinine 1.12 mg/dL (0.52-1.25) 03/17/20 04:57 Est GFR ( Amer) > 60 (>60) 03/17/20 04:57 Est GFR (Non-Af Amer) Cancelled 03/15/20 07:23 Est GFR (MDRD) Non-Af 49 (>60) L 03/17/20 04:57 Glucose 92 mg/dL (75-110) 03/17/20 04:57 POC Glucose 75 mg/dL (70-110) 03/14/20 11:06 Lactic Acid 1.2 mmol/L (0.7-2.1) 03/14/20 01:54 Calcium 9.2 mg/dL (8.4-10.2) 03/17/20 04:57 Total Bilirubin 0.5 mg/dL (0.2-1.3) 03/17/20 04:57 Direct Bilirubin 0.2 mg/dL (0.0-0.4) 03/17/20 04:57 Neonat Total Bilirubin Not Reportable 03/17/20 04:57 Neonat Direct Bilirubin Not Reportable 03/17/20 04:57 Neonat Indirect Bili Not Reportable 03/17/20 04:57 AST 49 U/L (14-36) H 03/17/20 04:57 ALT 32 U/L (<35) 03/17/20 04:57 Alkaline Phosphatase 99 U/L (38-126) 03/17/20 04:57 Ammonia 26.5 umol/L (9-33) 03/13/20 17:20 Troponin I 0.040 ng/mL 03/13/20 15:30 Total Protein 7.2 g/dL (6.3-8.2) 03/17/20 04:57 Albumin 3.2 g/dL (3.5-5.0) L 03/17/20 04:57 EGFR Cancelled 03/15/20 07:23 Urine Color SERGIO 03/13/20 16:07 Urine Appearance SLIGHTLY-CLOUDY 03/13/20 16:07 Urine pH 6.0 (5.0-9.0) 03/13/20 16:07 Ur Specific [place] 1.015 03/13/20 16:07 Urine Protein >=500 mg/dL (NEGATIVE) H 03/13/20 16:07 Urine Glucose (UA) NEGATIVE mg/dL (NEGATIVE) 03/13/20 16:07 Urine Ketones TRACE mg/dL (NEGATIVE) H 03/13/20 16:07 Urine Blood SMALL (NEGATIVE) H 03/13/20 16:07 Urine Nitrite (Reflex) NEGATIVE (NEGATIVE) 03/13/20 16:07 Urine Bilirubin NEGATIVE (NEGATIVE) 03/13/20 16:07 Urine Urobilinogen 4.0 mg/dL (<2.0) H 03/13/20 16:07 Leukocyte Esterase Rfl SMALL (NEGATIVE) H 03/13/20 16:07 Urine RBC (Auto) 5 /HPF 03/13/20 16:07 U Hyaline Cast (Auto) 1 /LPF 03/13/20 16:07 Urine WBC (Reflex) 28 /HPF 03/13/20 16:07 Squamous Epi Cells Auto 1 /HPF 03/13/20 16:07 Urine Mucus (Auto) OCC /LPF 03/13/20 16:07 Urine Ascorbic Acid NEGATIVE (NEGATIVE) 03/13/20 16:07 Fluid Tube Number 1 03/13/20 16:11 Fluid Tube Number 4 03/13/20 16:11 CSF Volume 4.0 CC 03/13/20 16:11 CSF Volume 4.0 CC 03/13/20 16:11 CSF Appearance HAZY 03/13/20 16:11 CSF Appearance HAZY 03/13/20 16:11 CSF Color PINK 03/13/20 16:11 CSF Color PINK 03/13/20 16:11 CSF WBC 6 /uL (0-5) H 03/13/20 16:11 CSF WBC 11 /uL (0-5) H 03/13/20 16:11 CSF RBC 4050 /uL (0-10) H 03/13/20 16:11 CSF RBC 5020 /uL (0-10) H 03/13/20 16:11 CSF Mononuclear Cells 26 % 03/13/20 16:11 CSF Mononuclear Cells 54 % 03/13/20 16:11 CSF Polymorphonuclear 46 % 03/13/20 16:11 CSF Polymorphonuclear 74 % 03/13/20 16:11 CSF Glucose 75 mg/dL (40-70) H 03/13/20 16:11 CSF Total Protein 70 mg/dL (12-60) H 03/13/20 16:11 Time Trough Drawn 72203/15/20 07:23 Vancomycin Trough 9.0 ug/mL (5.0-20.0) 03/15/20 07:23 Urine Opiates Screen NEGATIVE 03/13/20 16:07 Urine Methadone Screen NEGATIVE 03/13/20 16:07 Ur Barbiturates Screen NEGATIVE 03/13/20 16:07 Ur Phencyclidine Scrn NEGATIVE 03/13/20 16:07 Ur Amphetamines Screen NEGATIVE 03/13/20 16:07 U Benzodiazepines Scrn NEGATIVE 03/13/20 16:07 Urine Cocaine Screen NEGATIVE 03/13/20 16:07 U Marijuana (THC) Screen NEGATIVE 03/13/20 16:07 Serum Alcohol < 10 mg/dL (NONE DETECTED) 03/13/20 15:30 COVID-19 Source See comment 03/13/20 17:02 COVID-19 (OLIVIA) Not Detected (Not Detect) 03/13/20 17:02 Herpes Simplex Source CSF 03/13/20 16:11 HSV I DNA PCR Negative (Negative) 03/13/20 16:11 HSV II DNA PCR Negative (Negative) 03/13/20 16:11 Slides for Path Review Cancelled 03/15/20 07:23 03/13/20 15:30 Troponin I 0.040 Impressions: Chest X-Ray 03/13/20 15:29 IMPRESSION: NO ACUTE RADIOGRAPHIC FINDING IN THE CHEST. Head CT 03/13/20 15:32 IMPRESSION: MILD CHRONIC CHANGES OF ATROPHY AND MICROVASCULAR ISCHEMIA. NO ACUTE PROCESS. EVIDENCE OF ACUTE STROKE: NO. Head MRI 03/14/20 00:00 IMPRESSION: Chronic ischemic changes. EVIDENCE OF ACUTE STROKE: NO. Plan Plan of Treatment: Follow-up with a neurologist outpatient regarding seizure and the need for Keppra. -Take antihypertensive medications as prescribed -Needs a regular PCP Time Spent: Greater than 30 Minutes Stroke Is this a Stroke Patient?: No Acute Heart Failure Is this a Heart Failure Patient?: No
== END 2020-03-17 13:18 | disposition home or self-care (01) | DRG 100 ==
LOC: ER 15:14 → EH 20:06 → 3N 03-14 00:20 → 3W 03-15 14:58
PROVIDERS: ADMIT Emergency Medicine; ATTEND Internal Medicine
PROC: 009U3ZX Drainage of Spinal Canal, Percutaneous Approach, Diagnostic (ICD-10-PCS; principal; 2020-03-13)
DX: R56.9 Unspecified convulsions (principal); G93.41 Metabolic encephalopathy; I16.1 Hypertensive emergency; F01.50 Vascular dementia, unspecified severity, without behavioral disturbance, psychotic disturbance, mood disturbance, and anxiety; I10 Essential (primary) hypertension; B19.20 Unspecified viral hepatitis C without hepatic coma; H91.90 Unspecified hearing loss, unspecified ear; S00.83XA Contusion of other part of head, initial encounter; R41.0 Disorientation, unspecified; R50.9 Fever, unspecified; R74.02 Elevation of levels of lactic acid dehydrogenase [LDH]; Z11.59 Encounter for screening for other viral diseases; Z79.82 Long term (current) use of aspirin; Z79.899 Other long term (current) drug therapy; Z87.891 Personal history of nicotine dependence
CPT/HCPCS: 36415; 70450; 70551; 71045; 80053; 80202; 80307; 81001; 82140; 82803; 82945; 82962; 83605; 84157; 84484; 85025; 85610; 87040; 87070; 87086; 87088; 87186; 87205; 87529; 87635; 89050; 93005; 93010; 95819; 96365; 96367; 96375; 96376; 99291; C9113; C9254; C9803; J0133; J0692; J0696; J1450; J1885; J1953; J3370; J3480; J3490; J7030; J7042; J7050; J7060